=== PATIENT | female | born 1990 | race Caucasian/White ===

== ENCOUNTER 2020-11-24 18:14 | Emergency (ER) | payer BC, SELFPAY ==
[2020-11-24 18:31] VITALS: BP 116/72; PULSE 133; RESP 20; TEMP 35.9; O2SAT 100
--- NOTE | 2020-11-24 18:38 | ECG_ITS ---
Measurements Intervals [place] Rate: 120 P: 52 TX: 140 QRS: 48 QRSD: 83 T: 54 QT: 275 QTc: 389 Interpretive Statements SINUS TACHYCARDIA ABNORMAL ECG Electronically Signed On 11-24-2020 18:50:41 HAND BENDER by Sanchez Mirza D.O.
[2020-11-24 18:48] LABS: Basophils Absolute Auto 0.1 K/mm3 (0.0-0.1); Basophils Percent Auto 0.3 % (0.2-1.2); Eosinophils Absolute Auto 0.2 K/mm3 (0-0.3); Hematocrit 35.4 % (37.0-47.0); Hemoglobin 12.2 g/dL (12.0-15.0); Immature Granulocyte Absolute 0.19 K/mm3 (0.00-0.031); Immature Granulocyte Percent A 1.1 % (0-0.5); Lymphocytes Absolute Auto 2.22 K/mm3 (0.9-3.2); Lymphocytes Percent Auto 12.8 % (18.3-44.2); Mean Corpuscular HGB Conc 34.5 g/dl (32-36); Mean Corpuscular Hemoglobin 31.1 pg (26-34); Mean Corpuscular Volume 90.3 fl (80-100); Mean Platelet Volume 9.7 fl (7.4-10.4); Monocytes Absolute Auto 1.2 K/mm3 (0.1-0.6); Monocytes Percent Auto 7.1 % (2.6-8.5); Neutrophils Absolute Auto 13.5 K/mm3 (1.3-6.7); Neutrophils Percent Auto 77.7 % (45.5-73.1); Platelet Count Result 196 k/mm3 (150-375); Red Blood Count 3.92 M/mm3 (4.2-5.4); Red Cell Distribution Width 12.8 % (11.5-14.5); White Blood Count 17.4 K/mm3 (4.5-10.0)
[2020-11-24 18:59] LABS: Alanine Aminotransferase 20 U/L (4-35); Albumin Level 3.6 g/dL (3.5-5.1); Alkaline Phosphatase 73 U/L (38-126); Anion Gap 3 mmol/L (8-16); Aspartate Amino Transferase 23 U/L (14-36); Bilirubin,Total 0.5 mg/dL (0.2-1.3); Blood Urea Nitrogen 9 mg/dL (7-17); Calcium 9.3 mg/dL (8.4-10.2); Carbon Dioxide 27 mmol/L (22-30); Chloride 105 mmol/L (98-107); Estimated CRCL calculation 96 ml/min; Estimated Glomerular Filt Rate > 60; Glucose 109 mg/dL (65-105); Potassium 3.3 mmol/L (3.4-5.0); Sodium 135 mmol/L (137-145)
[2020-11-24 19:26] LABS: Add Urine Microscopic? YES; Appearance Urine Cloudy (Clear); Bacteria Urine 2+ /hpf; Bilirubin Urine Negative (Negative); Blood Urine Negative (Negative); Color Urine Yellow (Yellow); Glucose Urine UA Negative (Negative); Ketones Urine Negative (Negative); Leukocyte Esterase Ur Negative LEU/UL (Negative); Mucus Urine Rare /lpf; Nitrate Urine Negative (Negative); Protein Urine Negative (Negative); Specific Grav Ur 1.011 (1.001-1.035); Squamous Epithelial Cell Urine Few /hpf (Few); Urobilinogen Urine Negative mg/dL (<2.0)
[2020-11-24 19:33] VITALS: BP 119/83; PULSE 122; RESP 17; O2SAT 99
[2020-11-24] MEDS: SODIUM CHLORIDE 0.9% IV 1,000 ML 999 ML IV CONT (20:13)
--- NOTE | 2020-11-24 20:42 | ED.ARRPALP ---
HPI - Arrhythmia/Palpitations General Chief Complaint: Arrhythmia/Palpitations Stated Complaint: headache, palpations Time Seen by Provider: 11/24/20 19:32 History of Present Illness HPI narrative: Patient is a 30-year-old female who is 26 weeks who presents ER with a racing heartbeat. Reports has been ongoing for the last hour. She has had similar symptoms throughout the week. Is been associated with some mild shortness of breath. Is also associated with what she feels like is hyperactivity of her baby. No chest pain or chest pressure. Has not had the diagnosis of a formal arrhythmia in the past. has not been complicated up to this point. Reports has been eating and drinking okay. No blood in urine. No vaginal bleeding or leakage of fluid from the vagina. Related Data Allergies Allergy/AdvReac Type Severity Reaction Status Date / Time morphine Allergy Intermediate Rash Verified 11/04/18 19:53 Review of Systems Review of Systems: All systems reviewed & are unremarkable except as noted in HPI and below Constitutional: Constitutional: Denies chills, Denies fever(s) and Denies weakness Cardiovascular: Cardiovascular: Denies chest pain, Reports rapid heart rate and Denies radiating jaw, neck or arm pain Respiratory: Respiratory: Denies cough, Denies dyspnea and Denies wheezing Genitourinary: Genitourinary: Denies abnormal vaginal bleeding, Denies nocturia and Denies dysuria PMFSH Past Medical History Medical History (Updated 11/24/20 @ 21:09 by Tyler Payne MD) Healthy female adult Surgical History Surgical History (Updated 11/24/20 @ 20:43 by Tyler Payne MD) No history of previous surgery Exam Narrative: Exam Narrative: GENERAL: Well-appearing, well-nourished, and in no acute distress. HEAD: Normocephalic, atraumatic. CHEST: Clear to auscultation. No respiratory distress. HEART: Tachycardic and regular. Normal peripheral pulses. ABDOMEN: Soft, nontender, gravid. EXTREMITIES: Normal range of motion. No edema. SKIN: Warm, dry, no rash. NEURO: Alert and oriented x3. Course Course Emergency Course: Heart rate has gone down from 130 to 104 after a bag of fluid. Patient is feeling improved. Discussed case with Dr. Mack. Will place patient on Vital Signs Vital signs: Vital Signs Temperature 96.6 F L 11/24/20 18:31 Pulse Rate 133 H 11/24/20 18:31 Respiratory Rate 20 11/24/20 18:31 Blood Pressure 116/72 11/24/20 18:31 Pulse Oximetry 100 11/24/20 18:31 Temperature 96.6 F L 11/24/20 18:31 Pulse Rate 105 H 11/24/20 20:49 Respiratory Rate 19 11/24/20 20:49 Blood Pressure 102/63 11/24/20 20:49 Pulse Oximetry 99 11/24/20 20:49 MDM - Arrhythmia/Palpitations Lab Data Result diagrams: 11/24/20 18:41 11/24/20 18:41 Labs: Lab Results 11/24/20 11/24/20 11/24/20 Range/Units 18:41 18:41 19:07 WBC 17.4 H (4.5-10.0) K/mm3 RBC 3.92 L (4.2-5.4) M/mm3 Hgb 12.2 (12.0-15.0) g/dL Hct 35.4 L (37.0-47.0) % MCV 90.3 (80-100) fl MCH 31.1 (26-34) pg MCHC 34.5 (32-36) g/dl RDW 12.8 (11.5-14.5) % Plt Count 196 (150-375) k/mm3 MPV 9.7 (7.4-10.4) fl Immature Gran % (Auto) 1.1 H (0-0.5) % Neut % (Auto) 77.7 H (45.5-73.1) % Lymph % (Auto) 12.8 L (18.3-44.2) % [place] % (Auto) 7.1 (2.6-8.5) % Eos % (Auto) 1.0 (0-4.4) % Baso % (Auto) 0.3 (0.2-1.2) % Lymph # (Auto) 2.22 (0.9-3.2) K/mm3 [place] # (Auto) 1.2 H (0.1-0.6) K/mm3 Eos # (Auto) 0.2 (0-0.3) K/mm3 Baso # (Auto) 0.1 (0.0-0.1) K/mm3 Abs Immat Gran (auto) 0.19 H (0.00-0.031) K/mm3 Absolute Neuts (auto) 13.5 H (1.3-6.7) K/mm3 Absolute Nucleated RBC 0.0 (0.0-0.012) K/mm3 Nucleated RBC % 0.0 (0.0-0.2) % Sodium 135 L (137-145) mmol/L Potassium 3.3 L (3.4-5.0) mmol/L Chloride 105 (98-107) mmol/L Carbon Dioxide 27 (22-30) mmol/L Anion Gap 3 L (
[2020-11-24 20:49] VITALS: BP 102/63; PULSE 105; RESP 19; O2SAT 99
== END 2020-11-24 21:19 | disposition home or self-care (01) ==
PROVIDERS: Emergency Medicine; Emergency Provider Emergency Medicine; PCP Family Medicine
DX: O26.892 Other specified pregnancy related conditions, second trimester (principal); R00.2 Palpitations; O23.92 Unspecified genitourinary tract infection in pregnancy, second trimester; O99.282 Endocrine, nutritional and metabolic diseases complicating pregnancy, second trimester; E86.0 Dehydration; R00.0 Tachycardia, unspecified; Z3A.26 26 weeks gestation of pregnancy
CPT/HCPCS: 36415; 80053; 81001; 85025; 93005; 96360; 99283; J7030

== ENCOUNTER 2020-12-20 00:41 | Observation (INO) | payer BC, SELFPAY ==
[2020-12-20] VITALS (21 sets, daily range): BP systolic 106–123; BP diastolic 60–80; PULSE 87–120; TEMP 37.3
--- NOTE | 2020-12-20 01:59 | LDADM ---
This patient, Loretta Zaragoza, was admitted to OB Post 117 on 12/20/20 at 00:41. Plans for labor, pain management and were discussed with patient. Patient/family oriented to hospital policies and general routines including ID bracelet, bed and alarms, visiting hours, pain management, procedures, bathroom and other care routines, personal items, smoking policy, room service/diet and guest tray routines, infant security routines, and visiting hours. Patient/Family are encouraged to report perceived risks to care and to ask questions if they do not understand what they are told or what they should do. See OBIX for further documentation.
[2020-12-20] MEDS: NIFEdipine 30 MG TAB.ER.24 PO (02:08)
[2020-12-20] MEDS: TERBUTALINE SULFATE 1 MG/ML VIAL 0.25 MG SUB-Q (04:37)
[2020-12-20 04:51] LABS: Add Urine Microscopic? YES; Appearance Urine Cloudy (Clear); Bacteria Urine 3+ /hpf; Bilirubin Urine Negative (Negative); Blood Urine 2+ (Negative); Color Urine Yellow (Yellow); Glucose Urine UA Negative (Negative); Ketones Urine Negative (Negative); Leukocyte Esterase Ur Negative LEU/UL (Negative); Mucus Urine Rare /lpf; Nitrate Urine Negative (Negative); Protein Urine Negative (Negative); RBC Urine 51-75 /hpf (0-2); Squamous Epithelial Cell Urine Occasional /hpf (Few); Urobilinogen Urine Negative mg/dL (<2.0)
[2020-12-20] MEDS: LACTATED RINGERS 1,000 ML 999 ML IV CONT (06:24)
[2020-12-20] MEDS: NITROFURANTOIN MONOHYD MACROCR 100 MG CAP PO (06:25)
--- NOTE | 2020-12-20 08:00 | PC.NURSE ---
0745- Niranjan Lea on unit. Orders to discharge to home with a follow up in the office on Saturday. Prescription for Macrobid 100mg BID x7 days transmitted to [facility] in [place].
--- NOTE | 2021-01-16 10:53 | P.PNOB_ITS ---
OB - Triage/Final Diagnosis Visit Information Comments/Additional reasons for admission: I have assessed the risk for this patient, Loretta Zaragoza, and determined that she would benefit from observation care. Evaluation Laboratory results: Laboratory Tests 12/20/20 04:32 Urine Color Yellow Urine Appearance Cloudy H Urine pH 7.0 Ur Specific [place] 1.010 Urine Protein Negative Urine Glucose (UA) Negative Urine Ketones Negative Ur Blood (Man) 2+ H Urine Nitrate Negative Urine Bilirubin Negative Urine Urobilinogen Negative Leukocyte Esterase Rfl Negative Urine RBC 51-75 H Urine WBC 4-6 H Ur Squamous Epith Cells Occasional Urine Bacteria 3+ H Urine Mucus Rare Final Diagnosis (1) False labor: Code(s): O47.9 - False labor, unspecified Status: Acute
--- NOTE | 2021-01-16 11:27 | PM.OBTRLD ---
OB - Triage/Final Diagnosis Visit Information Comments/Additional reasons for admission: I have assessed the risk for this patient, Loretta Zaragoza, and determined that she would benefit from observation care. Evaluation Laboratory results: Laboratory Tests 12/20/20 04:32 Urine Color Yellow Urine Appearance Cloudy H Urine pH 7.0 Ur Specific [place] 1.010 Urine Protein Negative Urine Glucose (UA) Negative Urine Ketones Negative Ur Blood (Man) 2+ H Urine Nitrate Negative Urine Bilirubin Negative Urine Urobilinogen Negative Leukocyte Esterase Rfl Negative Urine RBC 51-75 H Urine WBC 4-6 H Ur Squamous Epith Cells Occasional Urine Bacteria 3+ H Urine Mucus Rare Final Diagnosis (1) False labor: Code(s): O47.9 - False labor, unspecified Status: Acute
== END 2020-12-20 08:24 | disposition home or self-care (01) ==
PROVIDERS: Advanced Practice Midwife; Admitting Provider Obstetrics & Gynecology; PCP Family Medicine; Visit Provider Obstetrics & Gynecology
DX: O47.03 False labor before 37 completed weeks of gestation, third trimester (principal); Z3A.30 30 weeks gestation of pregnancy
CPT/HCPCS: 81001; 96360; 96372; A9270; G0378; G0379; J3105; J7120

== ENCOUNTER 2020-12-29 13:53 | Observation (INO) | payer BC, SELFPAY ==
[2020-12-29] VITALS (30 sets, daily range): BP systolic 120–123; BP diastolic 68–69; PULSE 96–140; TEMP 36.6; O2SAT 95–100
--- NOTE | ~2020-12-29 | US_ITS ---
EXAMINATION: US OB limited EXAM DATE: 12/29/2020 15:46 INDICATION: PTL ( labor?)- POLA PTL, POLA . 3rd trimester. TECHNIQUE: Pelvic obstetrical transabdominal sonogram was performed by a technologist. There are mu ltiple grayscale and Doppler images available for interpretation. There are no earlier studies of th is gestation for comparison. FINDINGS: There is a single fetus identified in vertex presentation with a heart rate of 116 beats pe r minute. The placenta is located in the fundal position. There is no sonographic evidence of retrop lacental hemorrhage identified. The amniotic fluid index is 12.8 centimeters, which is normal. IMPRESSION: 1. Single fetus in vertex presentation with heart rate 116 beats per minute. 2. Normal POLA 12.8 cm. Reviewed, dictated and finalized at location A. TER SERVER
[2020-12-29] MEDS: LACTATED RINGERS 1,000 ML 100 ML IV CONT (15:50)
[2020-12-29] MEDS: NIFEdipine 30 MG TAB.ER.24 PO (15:50)
--- NOTE | 2020-12-29 16:04 | OBADM ---
This patient, Loretta Zaragoza, admitted to the OB room OB Post 113 for observation. Patient/family oriented to hospital policies and general routines including ID bracelet, bed and alarms, visiting hours, pain management, procedures, bathroom and other care routines, personal items, smoking policy, room service/diet, and visiting hours. Patient/Family are encouraged to report perceived risks to care and to ask questions if they do not understand what they are told or what they should do.
[2020-12-29 16:17] LABS: Fetal Fibronectin Negative
[2020-12-29 16:32] LABS: Add Urine Microscopic? NO; Appearance Urine Clear (Clear); Bilirubin Urine Negative (Negative); Blood Urine Negative (Negative); Color Urine Straw (Yellow); Glucose Urine UA Negative (Negative); Ketones Urine Negative (Negative); Leukocyte Esterase Ur Negative LEU/UL (Negative); Nitrate Urine Negative (Negative); Protein Urine Negative (Negative); Specific Grav Ur 1.008 (1.001-1.035); Urobilinogen Urine Negative mg/dL (<2.0)
[2020-12-29] MEDS: TERBUTALINE SULFATE 1 MG/ML VIAL 0.25 MG SUB-Q (17:28)
--- NOTE | 2021-01-23 08:20 | PM.OBTRLD ---
OB - Triage/Final Diagnosis Visit Information Comments/Additional reasons for admission: I have assessed the risk for this patient, Loretta Zaragoza, and determined that she would benefit from observation care. Evaluation Laboratory results: Laboratory Tests 12/29/20 12/29/20 15:20 15:49 Urine Color Straw Urine Appearance Clear Urine pH 7.0 Ur Specific [place] 1.008 Urine Protein Negative Urine Glucose (UA) Negative Urine Ketones Negative Ur Blood (Man) Negative Urine Nitrate Negative Urine Bilirubin Negative Urine Urobilinogen Negative Leukocyte Esterase Rfl Negative Fibronectin Negative Final Diagnosis (1) False labor: Code(s): O47.9 - False labor, unspecified Status: Acute
== END 2020-12-29 19:45 | disposition home or self-care (01) ==
PROVIDERS: Advanced Practice Midwife; Admitting Provider Obstetrics & Gynecology; PCP Family Medicine; Visit Provider Obstetrics & Gynecology
DX: O47.9 False labor, unspecified (principal); Z3A.00 Weeks of gestation of pregnancy not specified
CPT/HCPCS: 76815; 81003; 82731; 84112; 96372; A9270; G0378; G0379; J3105; J7120

== ENCOUNTER 2021-01-05 20:20 | Observation (INO) | payer BC, SELFPAY ==
[2021-01-05 20:38] VITALS: BP 127/83; PULSE 103
[2021-01-05 21:00] VITALS: BP 114/75; PULSE 108
[2021-01-05 21:28] LABS: Add Urine Microscopic? YES; Amorphous Sediment Urine Few; Appearance Urine Cloudy (Clear); Bacteria Urine Trace /hpf; Bilirubin Urine Negative (Negative); Blood Urine Negative (Negative); Color Urine Yellow (Yellow); Glucose Urine UA Negative (Negative); Ketones Urine Negative (Negative); Leukocyte Esterase Ur Negative LEU/UL (Negative); Mucus Urine Rare /lpf; Nitrate Urine Negative (Negative); Protein Urine Negative (Negative); RBC Urine 0-2 /hpf (0-2); Squamous Epithelial Cell Urine Rare /hpf (Few); Urobilinogen Urine Negative mg/dL (<2.0); WBC Urine 0-3 /hpf
[2021-01-05] MEDS: TERBUTALINE SULFATE 1 MG/ML VIAL 0.25 MG SUB-Q (21:42)
--- NOTE | 2021-02-06 09:58 | P.PNOB_ITS ---
OB - Triage/Final Diagnosis Visit Information Comments/Additional reasons for admission: I have assessed the risk for this patient, Loretta Zaragoza, and determined that she would benefit from observation care. Evaluation Laboratory results: Laboratory Tests 01/05/21 21:12 Urine Color Yellow Urine Appearance Cloudy H Urine pH 7.0 Ur Specific [place] 1.010 Urine Protein Negative Urine Glucose (UA) Negative Urine Ketones Negative Ur Blood (Man) Negative Urine Nitrate Negative Urine Bilirubin Negative Urine Urobilinogen Negative Leukocyte Esterase Rfl Negative Urine RBC 0-2 Urine WBC 0-3 Ur Squamous Epith Cells Rare Amorphous Sediment Few H Urine Bacteria Trace Urine Mucus Rare Final Diagnosis (1) False labor: Code(s): O47.9 - False labor, unspecified Status: Acute
== END 2021-01-05 23:00 | disposition home or self-care (01) ==
PROVIDERS: Admitting Provider Obstetrics & Gynecology; Visit Provider Obstetrics & Gynecology
DX: O47.03 False labor before 37 completed weeks of gestation, third trimester (principal); Z3A.32 32 weeks gestation of pregnancy
CPT/HCPCS: 81001; 96372; G0378; G0379; J3105

== ENCOUNTER 2021-01-09 17:56 | Observation (INO) | payer BC, SELFPAY ==
[2021-01-09 18:19] VITALS: BP 129/75; PULSE 114
[2021-01-09 18:30] VITALS: RESP 12; TEMP 37
[2021-01-09 18:38] VITALS: BMI 26.9
[2021-01-09] MEDS: TERBUTALINE SULFATE 1 MG/ML VIAL 0.25 MG SUB-Q (19:08)
[2021-01-09] MEDS: NIFEdipine 10 MG CAPSULE PO (22:29)
--- NOTE | 2021-01-10 04:56 | PC.NURSE ---
2109 patient given 2nd dose of terb
--- NOTE | 2021-01-23 08:32 | PM.OBTRLD ---
OB - Triage/Final Diagnosis Visit Information Comments/Additional reasons for admission: I have assessed the risk for this patient, Loretta Zaragoza, and determined that she would benefit from observation care. Final Diagnosis (1) False labor: Code(s): O47.9 - False labor, unspecified Status: Acute
== END 2021-01-09 23:34 | disposition home or self-care (01) ==
PROVIDERS: Admitting Provider Obstetrics & Gynecology; PCP Student in an Organized Health Care Education/Training Program; Visit Provider Obstetrics & Gynecology
DX: O47.03 False labor before 37 completed weeks of gestation, third trimester (principal); Z3A.32 32 weeks gestation of pregnancy
CPT/HCPCS: 96372; A9270; G0378; G0379; J3105

== ENCOUNTER 2021-01-29 10:08 | Observation (INO) | payer BC, SELFPAY ==
--- NOTE | ~2021-01-29 | US_ITS ---
US OB limited DATE: 01/29/2021 12:04 INDICATION: Leaking fluid TECHNIQUE: Real-time imaging and Doppler analysis COMPARISON: 12/2020 Limited obstetrical ultrasound examination FINDINGS: Live [place] intrauterine gestation, fetus in longitudinal lie, vertex presentation. Feta l heart rate of 138 bpm. Fundal placenta. Amniotic fluid index measures 13.6 cm, compared to 12.8 cm on 12/2020. (5th percentile POLA: 7.9 cm. 95th percentile POLA: 24.9 cm.) IMPRESSION: Normal POLA measurement of 13.6 cm Reviewed, dictated and finalized at [facility]. Reviewed, dictated and finalized at location A.
--- NOTE | 2021-01-29 10:08 | OBADM ---
This patient, Loretta Zaragoza, admitted to the OB room Labor/Delivery/Recovery 104 for observation. Patient/family oriented to hospital policies and general routines including ID bracelet, bed and alarms, visiting hours, pain management, procedures, bathroom and other care routines, personal items, smoking policy, room service/diet, and visiting hours. Patient/Family are encouraged to report perceived risks to care and to ask questions if they do not understand what they are told or what they should do.
[2021-01-29] MEDS: NIFEdipine 30 MG TAB.ER.24 PO (12:57)
[2021-01-29 13:25] VITALS: BMI 28.7
== END 2021-01-29 15:15 | disposition home or self-care (01) ==
PROVIDERS: Admitting Provider Obstetrics & Gynecology; PCP Student in an Organized Health Care Education/Training Program; Visit Provider Obstetrics & Gynecology
DX: O47.9 False labor, unspecified (principal); Z3A.00 Weeks of gestation of pregnancy not specified
CPT/HCPCS: 76815; 84112; A9270; G0378; G0379

== ENCOUNTER 2021-02-10 18:11 | Observation (INO) | payer BC, SELFPAY ==
[2021-02-10 18:30] VITALS: BMI 28.8
--- NOTE | 2021-02-10 21:59 | OBADM ---
This patient, Loretta Zaragoza, admitted to the OB room Labor/Delivery/Recovery 108 for observation. Patient/family oriented to hospital policies and general routines including ID bracelet, bed and alarms, visiting hours, pain management, procedures, bathroom and other care routines, personal items, smoking policy, room service/diet, and visiting hours. Patient/Family are encouraged to report perceived risks to care and to ask questions if they do not understand what they are told or what they should do.
--- NOTE | 2021-02-15 07:38 | P.PNOB_ITS ---
OB - Triage/Final Diagnosis Visit Information Date of evaluation: 02/12/21 Reason for evaluation: threatened labor Comments/Additional reasons for admission: I have assessed the risk for this patient, Loretta Zaragoza, and determined that she would benefit from obse rvation care.
== END 2021-02-10 21:46 | disposition home or self-care (01) ==
PROVIDERS: Admitting Provider Obstetrics & Gynecology; Visit Provider Obstetrics & Gynecology
DX: O47.9 False labor, unspecified (principal); Z3A.00 Weeks of gestation of pregnancy not specified
CPT/HCPCS: G0378; G0379

== ENCOUNTER 2021-02-15 14:53 | Inpatient (IN) | payer BC, SELFPAY ==
[2021-02-15] VITALS (36 sets, daily range): BP systolic 83–156; BP diastolic 45–116; PULSE 68–104; TEMP 36.4–36.7; O2SAT 98–100; BMI 28.8
[2021-02-15 15:17] LABS: Basophils Percent Auto 0.3 % (0.2-1.2); Eosinophils Absolute Auto 0.1 K/mm3 (0-0.3); Eosinophils Percent Auto 0.7 % (0-4.4); Hematocrit 35.2 % (37.0-47.0); Hemoglobin 11.9 g/dL (12.0-15.0); Immature Granulocyte Absolute 0.09 K/mm3 (0.00-0.031); Immature Granulocyte Percent A 0.8 % (0-0.5); Lymphocytes Absolute Auto 1.75 K/mm3 (0.9-3.2); Lymphocytes Percent Auto 16.4 % (18.3-44.2); Mean Corpuscular HGB Conc 33.8 g/dl (32-36); Mean Corpuscular Hemoglobin 30.3 pg (26-34); Mean Corpuscular Volume 89.6 fl (80-100); Mean Platelet Volume 11.3 fl (7.4-10.4); Monocytes Absolute Auto 1.1 K/mm3 (0.1-0.6); Neutrophils Absolute Auto 7.6 K/mm3 (1.3-6.7); Neutrophils Percent Auto 71.8 % (45.5-73.1); Platelet Count Result 186 k/mm3 (150-375); Red Blood Count 3.93 M/mm3 (4.2-5.4); Red Cell Distribution Width 14.1 % (11.5-14.5); White Blood Count 10.6 K/mm3 (4.5-10.0)
[2021-02-15 15:22] LABS: Add Urine Microscopic? YES; Appearance Urine Cloudy (Clear); Bacteria Urine Trace /hpf; Bilirubin Urine Negative (Negative); Blood Urine Negative (Negative); Color Urine Straw (Yellow); Glucose Urine UA Negative (Negative); Ketones Urine Negative (Negative); Leukocyte Esterase Ur Negative LEU/UL (NEGATIVE); Mucus Urine Rare /lpf; Nitrate Urine Negative (Negative); Protein Urine Negative (Negative); RBC Urine 0-2 /hpf (0-2); Specific Grav Ur 1.008 (1.001-1.035); Squamous Epithelial Cell Urine Rare /hpf (Few); Urobilinogen Urine Negative mg/dL (<2.0); WBC Urine 0-3 /hpf (0-3)
[2021-02-15 15:26] LABS: Alanine Aminotransferase 11 U/L (4-35); Albumin Level 3.9 g/dL (3.5-5.1); Alkaline Phosphatase 211 U/L (38-126); Anion Gap 6 mmol/L (8-16); Aspartate Amino Transferase 27 U/L (14-36); Bilirubin,Total 0.7 mg/dL (0.2-1.3); Blood Urea Nitrogen 12 mg/dL (7-17); Calcium 9.8 mg/dL (8.4-10.2); Carbon Dioxide 25 mmol/L (22-30); Chloride 105 mmol/L (98-107); Estimated Glomerular Filt Rate 58; Glucose 92 mg/dL (65-105); Potassium 4.4 mmol/L (3.4-5.0); Sodium 136 mmol/L (137-145); Uric Acid 6.2 mg/dL (2.5-7.5)
[2021-02-15 15:29] LABS: Creatinine Urine 38.5 mg/dL; Total Protein Urine Random 13 mg/dL; Ur Ttl Prot Creatinine Ratio 0.34 mg/mg (0-0.20)
--- NOTE | 2021-02-15 16:29 | LDADM ---
This patient, Loretta Zaragoza, was admitted to Labor/Delivery/Recovery 109 on 02/15/21 at 14:53. Plans for labor, pain management and were discussed with patient. Patient/family oriented to hospital policies and general routines including ID bracelet, bed and alarms, visiting hours, pain management, procedures, bathroom and other care routines, personal items, smoking policy, room service/diet and guest tray routines, security routines, and visiting hours. Patient/Family are encouraged to report perceived risks to care and to ask questions if they do not understand what they are told or what they should do. See OBIX for further documentation.
[2021-02-15] MEDS: DINOPROSTONE 10 MG VAG INSERT VAGINAL (16:56)
--- NOTE | 2021-02-15 17:24 | WPDANESEPP ---
Anes - Eval Pre Procedure Procedure: labor epidural Date/Time: 02/15/21 17:24 Surgeon: fany Pre Op Diagnosis: [facility] Patient Data Age: 30 Gender: F Height: 1.63 m Weight: 76 kg Last Vital Signs Temp 36.7 C 02/15/21 16:30 Pulse 80 02/15/21 17:15 BP 123/74 02/15/21 17:15 Allergies Allergy/AdvReac Type Severity Reaction Status Date / Time morphine Allergy Intermediate Rash Verified 11/04/18 19:53 Home Medications Medication Instructions Recorded Confirmed Type famotidine [Pepcid] 20 mg PO DAILY PRN 01/05/21 02/15/21 History prenat.vits,negro,[id number] 1 tablet PO DAILY 01/05/21 02/15/21 History valacyclovir [Valtrex] 500 mg PO Q12H 01/30/21 02/15/21 History Laboratory Tests 02/15/21 02/15/21 02/15/21 15:04 15:04 15:04 WBC 10.6 K/mm3 H K/mm3 (4.5-10.0) RBC 3.93 M/mm3 L M/mm3 (4.2-5.4) Hgb 11.9 g/dL L g/dL (12.0-15.0) Hct 35.2 % L % (37.0-47.0) MCV 89.6 fl fl (80-100) MCH 30.3 pg pg (26-34) MCHC 33.8 g/dl g/dl (32-36) RDW 14.1 % % (11.5-14.5) Plt Count 186 k/mm3 k/mm3 (150-375) MPV 11.3 fl H fl (7.4-10.4) Immature Gran % (Auto) 0.8 % H % (0-0.5) Neut % (Auto) 71.8 % % (45.5-73.1) Lymph % (Auto) 16.4 % L % (18.3-44.2) [place] % (Auto) 10.0 % H % (2.6-8.5) Eos % (Auto) 0.7 % % (0-4.4) Baso % (Auto) 0.3 % % (0.2-1.2) Lymph # (Auto) 1.75 K/mm3 K/mm3 (0.9-3.2) [place] # (Auto) 1.1 K/mm3 H K/mm3 (0.1-0.6) Eos # (Auto) 0.1 K/mm3 K/mm3 (0-0.3) Baso # (Auto) 0.0 K/mm3 K/mm3 (0.0-0.1) Abs Immat Gran (auto) 0.09 K/mm3 H K/mm3 (0.00-0.031) Absolute Neuts (auto) 7.6 K/mm3 H K/mm3 (1.3-6.7) Absolute Nucleated RBC 0.0 K/mm3 K/mm3 (0.0-0.012) Nucleated RBC % 0.0 % % (0.0-0.2) Sodium Potassium Chloride Carbon Dioxide Anion Gap BUN Creatinine Estim Creat Clear Calc Estimated GFR Glucose Uric Acid Calcium Total Bilirubin AST ALT Alkaline Phosphatase Total Protein Albumin Urine Color Straw (Yellow) Urine Appearance Cloudy H (Clear) Urine pH 7.0 (5.0-9.0) Ur Specific [place] 1.008 (1.001-1.035) Urine Protein Negative mg/dL mg/dL (Negative) Urine Glucose (UA) Negative mg/dL mg/dL (Negative) Urine Ketones Negative mg/dL mg/dL (Negative) Ur Blood (Man) Negative (Negative) Urine Nitrate Negative (Negative) Urine Bilirubin Negative (Negative) Urine Urobilinogen Negative mg/dL mg/dL (<2.0) Ur Leukocyte Esterase Negative RUFINA/UL RUFINA/UL (NEGATIVE) Urine RBC 0-2 /hpf /hpf (0-2) Urine WBC 0-3 /hpf /hpf (0-3) Ur Squamous Epith Cells Rare /hpf /hpf (Few) Urine Bacteria Trace /hpf /hpf Urine Mucus Rare /lpf /lpf U Random Total Protein 13 mg/dL mg/dL Urine Creatinine 38.5 mg/dL mg/dL Protein/Creat Ratio 2 0.34 mg/mg H mg/mg (0-0.20) RPR Blood Type Antibody Screen 02/15/21 02/15/21 02/15/21 15:04 16:20 16:20 WBC RBC Hgb Hct MCV MCH MCHC RDW Plt Count MPV Immature Gran % (Auto) Neut % (Auto) Lymph % (Auto) [place] % (Auto) Eos % (Auto) Baso % (Auto) Lymph # (Auto) [place] # (Auto) Eos # (Auto) Baso # (Auto) Abs Immat
--- NOTE | 2021-02-15 18:02 | WPDOBADMIT ---
Obstetrics - Admit Note Admission Note: record reviewed. No pertinent additions to the history and/or any subsequent changes in the physical findings that are not consistent with the expected course of the were found. Pt admitted for MIL due to GHTN. Denies headache, visual changes, and epigastric pain, cytotec induction Additions to the history and/or subsequent changes in the physical findings follow. None.
[2021-02-15] MEDS: FAMOTIDINE 20 MG/2 ML VIAL IV PUSH (20:21)
--- NOTE | 2021-02-15 22:11 | PM.OBPNLAB ---
Pain Control Date/time seen: 02/15/21 22:11 Pain control: tolerating well Pelvic Exam Dilation (cm): 1 Effacement (%): 80 station: -1 Amniotic membrane status: Ruptured Comments: AROM Contractions Monitor mode: External Contraction frequency: 2 Contraction duration: 60 Contraction pattern: Regular Status status: Category l Assessment and Plan Comments: cervadil removed and AROM, plan to monitor bp stable
[2021-02-16] VITALS (47 sets, daily range): BP systolic 91–139; BP diastolic 58–92; PULSE 62–143; RESP 14–18; TEMP 36.5–37.4; O2SAT 97–100
[2021-02-16] MEDS: OXYTOCIN 30 UNITS/NS 500 ML 30 UNITS/500 ML BAG IV CONT ×2 (00:57→06:20)
--- NOTE | 2021-02-16 06:01 | PM.OBPRVD ---
OB - Delivery Note Procedure Delivery date: 02/16/21 Procedure: vaginal delivery events: Induced HTN Intrapartal events: None Induction method: AROM, per misoprostol protocol and per pitocin protocol Delivery monitor: external FHT Route of delivery: Laceration Description: Perineal - 2nd Degree Delivery repair: vicryl Specimen: Yes Quantitative Blood Loss (ml): 303 Anesthesia type: Epidural Disposition: other () [place] Baby Date of : 02/16/21 Time of : 05:40 Weeks of gestation at delivery: 38 Infant gender: Male Weight (pounds): 8 Weight (ounces): 10 presentation: vertex position: Left Occiput Anterior Placenta delivery description: Spontaneous cord vessel description: 3 Vessels, Nuchal Cord, Clamped/Cut and Delayed Cord Clamping score one minute: 9 score five minutes: 9 Narrative: mother and baby skin to skin in stable condition
--- NOTE | 2021-02-16 07:30 | PC.NURSE ---
Consulted with patient, mother reports infant has been latching with sleepiness and on and off during feedings. Mother reports last child that is 16 years old. Discussed and the 37 week infant, establishing may have its own unique set of circumstances due to their immaturity. infants may be less alert, have less stamina and may have issues with latch, suck and swallow. With the possible inability to have a vigorous suck swallow, infants may not be adequately stimulating mother and/or able to have adequate milk transfer. Pumping should be considered for additional stimulation and to offer EBM as part of supplement if needed if is not effectively nursing. Reviewed infant feeding cues, frequencies, duration of feedings, feeding elimination flow sheet, and signs of adequate intake. Demonstrated stimulation techniques to wake for feeding. Assisted with to breast. Reviewed positioning/alignment in cross cradle, holding breast in U hold and guided asymmetrical latch on. Infant was able to latch correctly within a few attempts. nursed eagerly, with steady draws and occasional swallowing noted. . Mother reported tenderness at times, had slipped to shallow latch. Demonstrated how to adjust latch more deeply while feeding. Mother quickly reports she can feel is latched more deeply and has minimal tenderness. Suggested to stimulate while feeding to keep awake and nursing effectively for increased stimulation, increased intake and assisting with maintaining deep latch.. Instructed mother to call out for RN assistance if she is unable to latch infant for feeding or she has discomfort with nursing Reviewed signs of a correct latch, effective nursing and suck swallow ratio. Infant was able to maintain latch without discomfort to mother. Nipple care reviewed.
[2021-02-16] MEDS: IBUPROFEN 600 MG TABLET PO ×2 (07:58→16:21)
[2021-02-16] MEDS: BENZOCAINE 20% AER SPR (*SP) 56 GM CAN 1 SPRAY TOPICAL (07:59)
[2021-02-16] MEDS: WITCH HAZEL 40 PADS 1 PAD TOPICAL (08:00)
--- NOTE | 2021-02-16 08:37 | OBPPTRN ---
Patient transferred to post room #282 via wheelchair. Support person present. Oriented to unit, room, information board, rooming in, admission packet and security measures. Patient verbalizes understanding. FOB and baby in the room with patient
--- NOTE | 2021-02-16 09:30 | PC.NURSE ---
Consult with pt., mother reports she was given a nipple shield for first feeding due to inverted nipples. Mother sates eagerly latched and nurses using shield. Reviewed instructions on application and cleaning of shield. Discussed nipple shield precautions and possible complications. Patient able to return demonstration on proper application of shield. Discussed the need to initiate pumping if continues to nurse with the shield. Patient verbalizes understanding. Reviewed weaning techniques of nipple shield to attempt later. Discussed inverted nipples and how they may impact latch and tenderness with feeding. Nipple care reviewed. Reviewed infant feeding cues, frequencies, duration of feedings, feeding elimination flow sheet, and signs of adequate intake. Demonstrated stimulation techniques to wake for feeding. Assisted with to breast using nipple shield. Reviewed positioning/alignment in cross cradle, holding breast in U hold and guided asymmetrical latch on. Infant was able to latch correctly. Infant nursed eagerly, with steady draws and frequent swallowing noted. Reviewed signs of a correct latch, effective nursing and suck swallow ratio. was able to maintain latch without discomfort to mother. Nipple care reviewed. Instructed mother to call out for RN assistance if she is unable to latch for feeding or she has discomfort with nursing. Instructed feeding should be initiated three hours from start of last feeding or if feeding cues are noted before. Mother voiced understanding of information shared.
--- NOTE | 2021-02-16 12:15 | PC.NURSE ---
Mother called out for assist with feeding. Mother had nipple shield in place and independently attempting latch in football. Reviewed positioning/alignment in football, holding breast in C hold and guided asymmetrical latch on. Infant was able to latch correctly. nursed eagerly, with steady draws and frequent swallowing noted. Reviewed signs of a correct latch, effective nursing and suck swallow ratio. was able to maintain latch without discomfort to mother. Nipple care reviewed. Mother reported tenderness at times, had slipped to shallow latch. Demonstrated how to adjust latch more deeply while feeding. Mother quickly reports she can feel infant is latched more deeply and has minimal tenderness. Suggested to stimulate while feeding to keep awake and nursing effectively for increased stimulation, increased intake and to assist with maintaining deep latch. . Instructed mother to call out for RN assistance if she is unable to latch for feeding or she has discomfort with nursing
--- NOTE | 2021-02-16 12:40 | PC.NURSE ---
Breast pump provided due to nipple shield use. Instructions given on breast pump care and usage, pumping schedule, nipple care, and collection and storage of breast milk. Encouraged [id number], breast massage and manual expression to stimulate supply. Assessed patient for correct flange size, placement and draw. Patient verbalizes and demonstrates understanding of instructions.
[2021-02-16 13:04] LABS: Rapid Plasma Reagin Non-Reactive (NonReactive)
[2021-02-17 05:35] VITALS: BP 123/83; PULSE 98; RESP 15; TEMP 36.7
--- NOTE | 2021-02-17 05:51 | P.PNOB_ITS ---
OB - PN: Subj Subjective Date/time seen: 02/17/21 05:51 Patient comments: no complaints baby status: doing well [place] feeding status: exclusively breast feeding OB - PN: Obj Data Labs CBC & Chem 7: 02/15/21 15:04 02/15/21 15:04 Labs: Laboratory Results - last 24 hr 02/15/21 16:20 RPR Non-reactive OB - PN A/P Plan day: 2 Plan: routine care and discharge home Time Spent With Patient Time: Total time spent is greater than 50% in coordination of care (as documented) at patient's floor/unit and/or counseling patient: Review of Systems Review of Systems: All systems reviewed & are unremarkable except as noted in HPI and below Exam Const: General: cooperative Orientation/consciousness: patient oriented x3 Psych: Affect: normal affect Attitude: cooperative Thought process: Normal thought process present Thought content: Yes Normal thought content present Judgement: Good judgement present (Psych)
--- NOTE | 2021-02-17 05:53 | PM.OBDSVD ---
DS: Admitting Diagnosis Admitting Diagnosis Admitting Diagnosis: YOSVANY NEWSOME OB - DS: Summary OB Procedures : None OB Procedures Intrapartum: Spontaneous Vag Delivery OB Procedures: : None Time Spent with Patient Time attestation: Total time spent providing and/or coordinating discharge services: DS: Data Data Completed and Pending Pending studies at discharge: Pending at discharge 02/16/21 05:49 Surgical [PTH] Routine Labs on day of discharge: Labs from last 24 hours 02/15/21 16:20 RPR Non-reactive Discharge Plan Discharge Attending physician on discharge: Karen Mack Discharging Clinician: Lindsay Herrera Patient Disposition: Home, Self-Care Activity: pelvic rest Diet: regular Patient Instructions: Antibiotic Form Stand Alone Forms: General Discharge Information Follow-up/Referrals: Lindsay Herrera CNM [Certified Nurse Logistics Support] - 1 Week Discharge Medications: Continued valacyclovir [Valtrex] 500 mg Tablet 500 mg PO Q12H RF: 0 prenat.vits,negro,qch-cful-cizqq Tablet 1 tablet PO DAILY RF: 0 Discontinued famotidine [Pepcid] 20 mg Tablet 20 mg PO DAILY PRN (Reason: Heartburn) RF: 0 Date of admission: 02/15/21 14:53 Primary Care Provider: PHYSICIAN,CENTER SAL[employer] SERVICE ASSOCIATE Admitting Provider: Karen Mack Attending physician on admission: Karen Mack Condition: Stable
--- NOTE | 2021-02-17 05:53 | PM.OBTRLD ---
OB - Triage/Final Diagnosis Visit Information Date of evaluation: 02/14/21 Reason for evaluation: other (HTN) Comments/Additional reasons for admission: I have assessed the risk for this patient, Loretta Zaragoza, and determined that she would benefit from observation care. Evaluation Laboratory results: Laboratory Tests 02/15/21 02/15/21 02/15/21 15:04 15:04 15:04 WBC 10.6 H RBC 3.93 L Hgb 11.9 L Hct 35.2 L MCV 89.6 MCH 30.3 MCHC 33.8 RDW 14.1 Plt Count 186 MPV 11.3 H Immature Gran % (Auto) 0.8 H Neut % (Auto) 71.8 Lymph % (Auto) 16.4 L [place] % (Auto) 10.0 H Eos % (Auto) 0.7 Baso % (Auto) 0.3 Lymph # (Auto) 1.75 [place] # (Auto) 1.1 H Eos # (Auto) 0.1 Baso # (Auto) 0.0 Abs Immat Gran (auto) 0.09 H Absolute Neuts (auto) 7.6 H Absolute Nucleated RBC 0.0 Nucleated RBC % 0.0 Sodium Potassium Chloride Carbon Dioxide Anion Gap BUN Creatinine Estim Creat Clear Calc Estimated GFR Glucose Uric Acid Calcium Total Bilirubin AST ALT Alkaline Phosphatase Total Protein Albumin Urine Color Straw Urine Appearance Cloudy H Urine pH 7.0 Ur Specific [place] 1.008 Urine Protein Negative Urine Glucose (UA) Negative Urine Ketones Negative Ur Blood (Man) Negative Urine Nitrate Negative Urine Bilirubin Negative Urine Urobilinogen Negative Ur Leukocyte Esterase Negative Urine RBC 0-2 Urine WBC 0-3 Ur Squamous Epith Cells Rare Urine Bacteria Trace Urine Mucus Rare U Random Total Protein 13 Urine Creatinine 38.5 Protein/Creat Ratio 2 0.34 H RPR Blood Type Antibody Screen 02/15/21 02/15/21 02/15/21 15:04 16:20 16:20 WBC RBC Hgb Hct MCV MCH MCHC RDW Plt Count MPV Immature Gran % (Auto) Neut % (Auto) Lymph % (Auto) [place] % (Auto) Eos % (Auto) Baso % (Auto) Lymph # (Auto) [place] # (Auto) Eos # (Auto) Baso # (Auto) Abs Immat Gran (auto) Absolute Neuts (auto) Absolute Nucleated RBC Nucleated RBC % Sodium 136 L Potassium 4.4 Chloride 105 Carbon Dioxide 25 Anion Gap 6 L BUN 12 Creatinine 1.10 H Estim Creat Clear Calc Not Reportable Estimated GFR 58 L Glucose 92 Uric Acid 6.2 Calcium 9.8 Total Bilirubin 0.7 AST 27 ALT 11 Alkaline Phosphatase 211 H Total Protein 7.0 Albumin 3.9 Urine Color Urine Appearance Urine pH Ur Specific [place] Urine Protein Urine Glucose (UA) Urine Ketones Ur Blood (Man) Urine Nitrate Urine Bilirubin Urine Urobilinogen Ur Leukocyte Esterase Urine RBC Urine WBC Ur Squamous Epith Cells Urine Bacteria Urine Mucus U Random Total Protein Urine Creatinine Protein/Creat Ratio 2 RPR Non-reactive Blood Type A Positive Antibody Screen Negative Vital signs: Vital Signs - 24 hr 02/16/21 06:00 02/16/21 06:15 02/16/21 06:30 Temperature 37.2 C Pulse Rate 116 H 87 83 Respiratory Rate Blood Pressure 112/74 124/83 128/87 Pulse Oximetry 02/16/21 06:45 02/16/21 07:00 02/16/21 07:15 Temperature Pulse Rate 81 87 77 Respiratory Rate Blood Pressure 130/92 H 131/83 134/86 Pulse Oximetry 02/16/21 07:26 02/16/21 07:30 02/16/21 08:40 Temperature 37.4 C Pulse Rate 89 78 83 Respiratory Rate 18 Blood Pressure 135/87 135/89 131/88 Pulse Oximetry 100 02/16/21 11:45 02/16/21 16:00 02/16/21 16:15 Temperature 36.7 C 36.5 C Pulse Rate 75 89 89 Respiratory Rate 18 16 16 Blood Pressure 129/85 131/88 Pulse Oximetry 97 02/16/21 20:10 02/16/21 22:00 Temperature 36.8 C 36.7 C Pulse Rate 90 91 Respiratory Rate 14 16 Blood Pressure 123/88 128/80 Pulse Oximetry
[2021-02-17 05:59] LABS: Hematocrit 27.8 % (37.0-47.0); Hemoglobin 9.4 g/dL (12.0-15.0)
[2021-02-17] MEDS: IBUPROFEN 600 MG TABLET PO (07:11)
[2021-02-17] MEDS: MULTIVIT/MIN/PREN/FOL AC/IRON TABLET 1 TAB PO (07:11)
[2021-02-17] MEDS: DOCUSATE SODIUM 100 MG CAPSULE PO (07:11)
[2021-02-17] MEDS: POLYSACCHARIDE IRON COMPLEX 150 MG CAPSULE PO (07:11)
[2021-02-17 07:20] VITALS: BP 130/85; PULSE 99; RESP 18; TEMP 36.7; O2SAT 98
--- NOTE | 2021-02-17 13:16 | PC.NURSE ---
1050 Mother reports sore nipples with feeding. Right is excoriated and red. Reviewed nipple care of lanolin and warm moist heat several times per day. Mother states she has attempted several times without using nipple shield. Advised to use the shield if she has less tenderness and is able to maintain deep latch. She can work with weaning from the shield once nipple has healed and milk is in. ICP has suggested mother supplement 15mls after breastfeedings, mother states infant spit up first feeding and has not supplemented since. Mother was assisted with pumping due to nipple shield use, mother reports she has pumped a few times. Reviewed reasoning for pumping with shield use. Mother is able to latch infant independently using the nipple shield. Infant eagerly latches nursing with long rhythmic draws and occasional swallowing noted. Infant tends to slip to shallow latch while feeding. Demonstrated how to adjust latch more deeply while feeding. Mother able to work infant deeply while feeding. Stressed signs of adequate intake, keeping feedings/elimination on blue flow sheet and supplementation after . Reviewed pumping after feedings using the shield and to call if nipple pain becomes more painful. Mother is able to independently latch infant with appropriate positioning/alignment using nipple shield. She is feeding as required and waking infant to feed if needed. Mother continues to work with deep latch. Infant has had at least 8 effective feedings in the past 24 hours, and is currently meeting outcomes for weight, output, jaundice and feeding frequencies. Mother states she feels confident to continue effective at home. Reviewed transition to breast milk, signs of adequate intake, and engorgement/relief. Instructed to call ICP if intake/output less than required. Reviewed regular medications mother is taking. Information provided per Veronica. Reviewed community resources on the [facility] website and in the Mom/Baby guide. Information on outpatient services provided. Mother has no further questions at this time.
[2021-02-18 07:51] VITALS: BP 131/91; PULSE 98; RESP 20; TEMP 36.7; O2SAT 100
== END 2021-02-17 10:44 | disposition home or self-care (01) | DRG 807 ==
LOC: ANHOBOP 14:56 → ANHLDR 16:05 → ANHOBOP 16:06 → ANHLDR 16:06 → ANHOB2 02-16 08:46
PROVIDERS: Advanced Practice Midwife; Admitting Provider Obstetrics & Gynecology; Visit Provider Obstetrics & Gynecology
DX: O13.4 Gestational [pregnancy-induced] hypertension without significant proteinuria, complicating childbirth (principal); Z37.0 Single live birth; Z3A.38 38 weeks gestation of pregnancy; O70.1 Second degree perineal laceration during delivery; O69.81X0 Labor and delivery complicated by cord around neck, without compression, not applicable or unspecified
CPT/HCPCS: 36415; 59025; 80053; 81001; 82570; 84156; 84550; 85014; 85018; 85025; 86592; 86850; 86900; 86901; 87086; 88307; A9270; J2590; J2795

== ENCOUNTER 2021-09-24 12:18 | Observation (INO) | payer BC, SELFPAY ==
--- NOTE | 2021-09-24 12:18 | OBADM ---
This patient, Loretta Zaragoza, admitted to the OB room OB Post 116 for observation. Patient/family oriented to hospital policies and general routines including ID bracelet, bed and alarms, visiting hours, pain management, procedures, bathroom and other care routines, personal items, smoking policy, room service/diet, and visiting hours. Patient/Family are encouraged to report perceived risks to care and to ask questions if they do not understand what they are told or what they should do.
[2021-09-24 12:30] VITALS: BMI 24.0
[2021-09-24 12:55] VITALS: TEMP 37.4
[2021-09-24 12:56] VITALS: BP 109/67; PULSE 101
[2021-09-24] MEDS: DEXTROSE 5%/LACTATED RINGERS 1,000 ML 999 ML IV CONT (13:02)
[2021-09-24] MEDS: FAMOTIDINE 20 MG/2 ML VIAL IV PUSH (13:03)
[2021-09-24] MEDS: ONDANSETRON INJ 4 MG/2 ML VIAL IV PUSH (13:03)
[2021-09-24 13:28] LABS: Add Urine Microscopic? YES; Appearance Urine Cloudy (Clear); Bacteria Urine Trace /hpf; Bilirubin Urine Negative (Negative); Blood Urine Negative (Negative); Color Urine Yellow (Yellow); Glucose Urine UA Negative (Negative); Ketones Urine 2+ mg/dL (Negative); Leukocyte Esterase Ur Negative LEU/UL (NEGATIVE); Mucus Urine Heavy /lpf; Nitrate Urine Negative (Negative); Protein Urine 1+ mg/dL (Negative); Specific Grav Ur 1.029 (1.001-1.035); Squamous Epithelial Cell Urine Few /hpf (Few); Urobilinogen Urine Negative mg/dL (<2.0); WBC Urine 0-3 /hpf (0-3)
[2021-09-24 14:59] LABS: Basophils Percent Auto 0.3 % (0.2-1.2); Eosinophils Absolute Auto 0.1 K/mm3 (0-0.3); Eosinophils Percent Auto 0.6 % (0-4.4); Hemoglobin 12.6 g/dL (12.0-15.0); Immature Granulocyte Absolute 0.04 K/mm3 (0.00-0.031); Immature Granulocyte Percent A 0.4 % (0-0.5); Lymphocytes Absolute Auto 0.78 K/mm3 (0.9-3.2); Lymphocytes Percent Auto 7.5 % (18.3-44.2); Mean Corpuscular Hemoglobin 30.9 pg (26-34); Mean Corpuscular Volume 88.2 fl (80-100); Mean Platelet Volume 9.3 fl (7.4-10.4); Monocytes Absolute Auto 0.6 K/mm3 (0.1-0.6); Monocytes Percent Auto 6.1 % (2.6-8.5); Neutrophils Absolute Auto 8.9 K/mm3 (1.3-6.7); Neutrophils Percent Auto 85.1 % (45.5-73.1); Platelet Count Result 201 k/mm3 (150-375); Red Blood Count 4.08 M/mm3 (4.2-5.4); Red Cell Distribution Width 12.5 % (11.5-14.5); White Blood Count 10.4 K/mm3 (4.5-10.0)
[2021-09-24 15:09] LABS: Alanine Aminotransferase 15 U/L (4-35); Albumin Level 4.1 g/dL (3.5-5.1); Alkaline Phosphatase 50 U/L (38-126); Anion Gap 3 mmol/L (8-16); Aspartate Amino Transferase 23 U/L (14-36); Bilirubin,Total 1.4 mg/dL (0.2-1.3); Blood Urea Nitrogen 8 mg/dL (7-17); Calcium 9.4 mg/dL (8.4-10.2); Carbon Dioxide 27 mmol/L (22-30); Chloride 104 mmol/L (98-107); Estimated CRCL calculation 117 ml/min; Estimated Glomerular Filt Rate > 60; Glucose 134 mg/dL (65-110); Potassium 3.8 mmol/L (3.4-5.0); Sodium 134 mmol/L (137-145)
--- NOTE | 2021-09-24 16:30 | PM.IMHP ---
H&P: HPI History of Present Illness Date/Time: 09/24/21 16:30 Chief Complaint: pt in observation for nausea and vomiting, unable to keep anything down at home, hx hyperemesis, no meds currently with this . daughter at home also not feeling well Review of Systems Review of Systems: All systems reviewed & are unremarkable except as noted in HPI and below PMFSH Past Medical History Medical History (Updated 01/16/21 @ 10:54 by Kelsi Lea CNM) Healthy female adult Surgical History Surgical History (Updated 11/24/20 @ 20:43 by Tyler Payne MD) No history of previous surgery Family History Family History (Updated 01/30/21 @ 13:34 by Ilya Sandoval RN) Other Unknown family medical history Social History Social History Smoking status: Never smoker Substance use: never Gender identity (if verbalized by the patient): Female Sexual Orientation (if Verbalized by the Patient): Straight or Heterosexual Spiritual care concerns: No Meds Home Medications and Allergies Home Medications Medication Instructions Recorded Confirmed Type prenat.vits,negro,pai-dyso-efhbr 1 tablet PO DAILY 01/05/21 02/15/21 History valacyclovir [Valtrex] 500 mg PO Q12H 01/30/21 02/15/21 History Allergies Allergy/AdvReac Type Severity Reaction Status Date / Time morphine Allergy Intermediate Rash Verified 11/04/18 19:53 Vital Signs Vital Signs - 24 hr 09/24/21 12:55 09/24/21 12:56 Temperature 37.4 C Pulse Rate 101 H Blood Pressure 109/67 Exam Const: General: cooperative and ill appearing Nutritional Appearance: average body habitus Limitations: no limitations H&P: Results Labs Labs: Short CBC 09/24/21 09/24/21 09/24/21 Range/Units 13:09 14:54 14:54 WBC 10.4 H (4.5-10.0) K/mm3 RBC 4.08 L (4.2-5.4) M/mm3 Hgb 12.6 D (12.0-15.0) g/dL Hct 36.0 L (37.0-47.0) % MCV 88.2 (80-100) fl MCH 30.9 (26-34) pg MCHC 35.0 (32-36) g/dl RDW 12.5 (11.5-14.5) % Plt Count 201 (150-375) k/mm3 MPV 9.3 (7.4-10.4) fl Immature Gran % (Auto) 0.4 (0-0.5) % Neut % (Auto) 85.1 H (45.5-73.1) % Lymph % (Auto) 7.5 L (18.3-44.2) % [place] % (Auto) 6.1 (2.6-8.5) % Eos % (Auto) 0.6 (0-4.4) % Baso % (Auto) 0.3 (0.2-1.2) % Lymph # (Auto) 0.78 L (0.9-3.2) K/mm3 [place] # (Auto) 0.6 (0.1-0.6) K/mm3 Eos # (Auto) 0.1 (0-0.3) K/mm3 Baso # (Auto) 0.0 (0.0-0.1) K/mm3 Abs Immat Gran (auto) 0.04 H (0.00-0.031) K/mm3 Absolute Neuts (auto) 8.9 H (1.3-6.7) K/mm3 Absolute Nucleated RBC 0.0 (0.0-0.012) K/mm3 Nucleated RBC % 0.0 (0.0-0.2) % Sodium 134 L (137-145) mmol/L Potassium 3.8 (3.4-5.0) mmol/L Chloride 104 (98-107) mmol/L Carbon Dioxide 27 (22-30) mmol/L Anion Gap 3 L (8-16) mmol/L BUN 8 (7-17) mg/dL Creatinine 0.50 L (0.7-1.0) mg/dL Estim Creat Clear Calc 117 ml/min Estimated GFR > 60 (59 - ) Glucose 134 H (65-110) mg/dL Calcium 9.4 (8.4-10.2) mg/dL Total Bilirubin 1.4 H (0.2-1.3) mg/dL AST 23 (14-36) U/L ALT 15 (4-35) U/L Alkaline Phosphatase 50 (38-126) U/L Total Protein 7.0 (6.3-8.2) g/dL Albumin 4.1 (3.5-5.1) g/dL Urine Color Yellow (Yellow) Urine Appearance Cloudy H (Clear) Urine pH 5.0 (5.0-9.0) Ur Specific [place] 1.029 (1.001-1.035) Urine Protein 1+ H (Negative) mg/dL Urine Glucose (UA) Negative (Negative) mg/dL Urine Ketones 2+ H (Negative) mg/dL Ur Blood (Man) Negative (Negative) Urine Nitrate Negative (Negative) Urine Bilirubin Negative (Negative) Urine Urobilinogen Negative (<2.0) mg/dL Ur Leukocyte Esterase Negative (NEGATIVE) RUFINA/UL Urine RBC 3-5 H (0-2) /hpf Urine WBC 0-3 (0-3) /hpf Ur Squamous Epith Cells Few (Few) /hpf Urine Bacteria Trace /hpf Hyaline Casts 3-4 H (None) /lpf Urine Mucus Heavy H /lpf
--- NOTE | 2021-09-24 16:50 | PC.NURSE ---
Called Ronnell Herrera CNM with update. Pt requesting to go home. States that she feels better and is taking sips of water without vomiting. Also states that her is having a breakdown at home with the baby and needs to go. May D/C home with Zofran prescription.
--- NOTE | 2021-09-27 07:29 | PM.OBDSVD ---
DS: Admitting Diagnosis Discharge Date 09/24/21 Admitting Diagnosis nausea and vomiting OB - DS: Summary OB Procedures : None OB Procedures Intrapartum: Other (undelivered) OB Procedures: : Other (undelivered) Time Spent with Patient Time attestation: Total time spent providing and/or coordinating discharge services: Discharge Plan Discharge Consulting providers: Lindsay Herrera Discharging Clinician: Lindsay Herrera Patient Disposition: Home, Self-Care Activity: as tolerated Diet: regular Discharge Instructions: OB ANTEPARTUM DISCHARGE INSTRUCTIONS This information is given to help you properly care for yourself at home after your discharge from the hospital. Follow these instructions until your doctor tells you otherwise. DIET: Eat Three Well Balanced Meals per Day Drink at Least Eight 8-Ounce Glasses of Caffeine-Free Beverages Daily Additional Diet Instructions: ACTIVITY: As Tolerated Increase Periods of Rest Additional Activity Instructions: RETURN TO LABOR AND DELIVERY IF YOU HAVE: Any Leakage of Fluid More than 6 Contractions in an Hour Vaginal Bleeding Additional Reasons to Return to Labor and Delivery: Contractions may feel like abdominal pain, tightening, cramping, pressure, back ache, or thigh ache. OTHER INSTRUCTIONS: FOLLOW-UP CARE: Keep Next Scheduled Appointment To see in/on Valuables released to patient or family? Medications from home returned to patient? I Acknowledge Receipt of and Understand the Above Instructions IF YOU HAVE ANY QUESTIONS REGARDING THESE INSTRUCTIONS, PLEASE CALL [phone]. IF PROBLEMS ARISE, CALL YOUR PROVIDER. IF EMERGENCY CARE IS NEEDED, [facility] EMERGENCY ROOM IS AVAILABLE 24 HOURS A DAY. Stand Alone Forms: General Discharge Information Follow-up/Referrals: Lindsay Herrera CNM [Certified Nurse Planning Director] - Discharge Medications: New ondansetron 4 mg Tablet,Disintegrating 4 mg PO Q6H PRN (Reason: Nausea And Vomiting) Qty: 30 RF: 0 Continued valacyclovir [Valtrex] 500 mg Tablet 500 mg PO Q12H RF: 0 prenat.vits,negro,zze-jddz-xtffg Tablet 1 tablet PO DAILY RF: 0 Date of admission: 09/24/21 12:18 Primary Care Provider: PHYSICIAN,[employer]LLF[employer] SHUCKER Admitting Provider: Karen Mack Attending physician on admission: Karen Mack Condition: Stable
== END 2021-09-24 17:00 | disposition home or self-care (01) ==
PROVIDERS: Advanced Practice Midwife; Admitting Provider Obstetrics & Gynecology; Visit Provider Obstetrics & Gynecology
DX: O26.891 Other specified pregnancy related conditions, first trimester (principal); R11.2 Nausea with vomiting, unspecified; Z3A.12 12 weeks gestation of pregnancy
CPT/HCPCS: 36415; 80053; 81001; 85025; 96374; 96375; G0378; G0379; J2405; J7121

== ENCOUNTER 2022-01-05 10:01 | Observation (INO) | payer BC, SELFPAY ==
[2022-01-05] VITALS (13 sets, daily range): BP systolic 100–114; BP diastolic 47–77; PULSE 78–125; RESP 16–19; TEMP 36.4–37.1; O2SAT 98–100; BMI 25.9
--- NOTE | ~2022-01-05 | CT_ITS ---
EXAMINATION: CT brain wo con DATE: 01/06/2022 15:13 INDICATION: Dizziness and vertigo TECHNIQUE: Computed tomography (CT) of the head was performed without intravenous contrast. Sagittal and coronal reconstructions were performed. The mA was adjusted according to patient size. Iterative reconstruction technique was employed. The dose-length product was 605.33 mGy-cm. COMPARISON: None FINDINGS: No acute intracranial hemorrhage, acute infarction or abnormal extra axial fluid collection. Ventricl es are normal and symmetric. No mass/mass effect. The orbits, paranasal sinuses and mastoid air cells are normal. IMPRESSION: 1. Normal head CT Reviewed, dictated and finalized at location A. [employer] ENG[employer] IMPRESSION: 1. Normal head CT
[2022-01-05] MEDS: SODIUM CHLORIDE 0.9% IV 1,000 ML 999 ML IV CONT (11:12)
[2022-01-05] MEDS: ONDANSETRON INJ 4 MG/2 ML VIAL IV PUSH ×2 (11:12→16:11)
[2022-01-05] MEDS: MECLIZINE HCL 25 MG TABLET PO (11:18)
--- NOTE | 2022-01-05 11:40 | PC.NURSE ---
reports nausea improved continues to be dizzy
[2022-01-05 13:33] LABS: Basophils Percent Auto 0.2 % (0.2-1.2); Hematocrit 31.6 % (37.0-47.0); Hemoglobin 10.5 g/dL (12.0-15.0); Immature Granulocyte Absolute 0.12 K/mm3 (0.00-0.031); Immature Granulocyte Percent A 0.7 % (0-0.5); Lymphocytes Absolute Auto 0.98 K/mm3 (0.9-3.2); Lymphocytes Percent Auto 6.1 % (18.3-44.2); Mean Corpuscular HGB Conc 33.2 g/dl (32-36); Mean Corpuscular Hemoglobin 30.4 pg (26-34); Mean Corpuscular Volume 91.6 fl (80-100); Mean Platelet Volume 10.4 fl (7.4-10.4); Monocytes Absolute Auto 0.5 K/mm3 (0.1-0.6); Monocytes Percent Auto 3.4 % (2.6-8.5); Neutrophils Absolute Auto 14.4 K/mm3 (1.3-6.7); Neutrophils Percent Auto 89.6 % (45.5-73.1); Platelet Count Result 203 k/mm3 (150-375); Red Blood Count 3.45 M/mm3 (4.2-5.4); Red Cell Distribution Width 12.8 % (11.5-14.5); White Blood Count 16.1 K/mm3 (4.5-10.0)
--- NOTE | 2022-01-05 13:41 | PC.NURSE ---
ATTEMPTED TO AMBULATE PT AND UNABLE DUE TO INCREASED DIZZINESS WITH SITTING UP
--- NOTE | 2022-01-05 13:42 | PC.NURSE ---
OB NURSE AT BEDSIDE FOR NTS
[2022-01-05 13:51] LABS: Alanine Aminotransferase 10 U/L (4-35); Albumin Level 3.4 g/dL (3.5-5.1); Alkaline Phosphatase 82 U/L (38-126); Anion Gap 6 mmol/L (8-16); Aspartate Amino Transferase 18 U/L (14-36); Bilirubin,Total 0.5 mg/dL (0.2-1.3); Blood Urea Nitrogen 6 mg/dL (7-17); Calcium 7.9 mg/dL (8.4-10.2); Carbon Dioxide 22 mmol/L (22-30); Chloride 109 mmol/L (98-107); Estimated CRCL calculation 117 ml/min; Estimated Glomerular Filt Rate > 60; Glucose 85 mg/dL (65-110); Potassium 3.6 mmol/L (3.4-5.0); Sodium 137 mmol/L (137-145)
[2022-01-05 14:23] LABS: Add Urine Microscopic? YES; Appearance Urine Clear (Clear); Bacteria Urine Trace /hpf; Bilirubin Urine Negative (Negative); Blood Urine Negative (Negative); Color Urine Yellow (Yellow); Glucose Urine UA Negative (Negative); Ketones Urine 1+ mg/dL (Negative); Leukocyte Esterase Ur Trace LEU/UL (Negative); Mucus Urine Rare /lpf; Nitrate Urine Negative (Negative); Protein Urine Negative (Negative); Specific Grav Ur 1.015 (1.001-1.035); Squamous Epithelial Cell Urine Few /hpf (Few); Urobilinogen Urine Negative mg/dL (<2.0)
--- NOTE | 2022-01-05 14:34 | PC.NURSE ---
up to commode but became very nauseated and had emesis
--- NOTE | 2022-01-05 14:39 | ED.GENADULT ---
HPI - General Adult General Chief complaint: Dizziness Stated complaint: dizziness, vomiting-from OB- 27 weeks preg Time Seen by Provider: 01/05/22 10:49 History of Present Illness HPI narrative: Patient is a 31-year-old female who presents ER with nausea and vomiting dizziness. Ongoing for 2 days. Suddenly worsened today. Worse with position change and turning head. Makes her feel anxious and sweaty. Reports she has had some mild sinus congestion over the last week. No ear pain or tinnitus. No fevers or chills or sweats. Patient is 27 weeks . She is starting to have some abdominal cramping from her vomiting. No vaginal bleeding or discharge. No urinary symptoms. Related Data Home Medications Medication Instructions Recorded Confirmed prenat.vits,negro,ued-ubap-sqtah 1 tablet PO DAILY 01/05/21 02/15/21 valacyclovir [Valtrex] 500 mg PO Q12H 01/30/21 02/15/21 Allergies Allergy/AdvReac Type Severity Reaction Status Date / Time morphine Allergy Intermediate Rash Verified 01/05/22 10:42 Review of Systems Review of Systems: All systems reviewed & are unremarkable except as noted in HPI and below Constitutional: Constitutional: Denies chills, Denies fever(s) and Denies weakness Eyes: Eyes: Denies change in vision ENT: Reports dizziness, Reports nasal congestion and Denies sore throat Respiratory: Respiratory: Denies cough, Denies dyspnea and Denies wheezing Gastrointestinal: Gastrointestinal: Denies abdominal pain, Denies diarrhea, Reports nausea and Reports vomiting Genitourinary: Genitourinary: Denies abnormal vaginal bleeding, Denies nocturia, Denies dysuria and Denies flank pain Neurologic: Reports vertigo, Denies headache(s), Denies focal weakness and Denies numbness PMF Past Medical History Medical History (Updated 01/05/22 @ 14:54 by Tyler Payne MD) Healthy female adult Surgical History Surgical History (Updated 11/24/20 @ 20:43 by Tyler Payne MD) No history of previous surgery Family History Family History (Updated 01/30/21 @ 13:34 by Ilya Sandoval RN) Other Unknown family medical history Social History Social History Smoking status: Never smoker Substance use: never Gender identity (if verbalized by the patient): Female Sexual Orientation (if Verbalized by the Patient): Straight or Heterosexual Spiritual care concerns: No Exam Narrative: GENERAL: Uncomfortable l-appearing and actively vomiting, well-nourished. HEAD: Normocephalic, atraumatic. EYES: PERRLA and EOMI. left gaze nystagmus. ENT: Mucous membranes moist. CHEST: Clear to auscultation. No respiratory distress. HEART: Regular rate and rhythm. Normal peripheral pulses. ABDOMEN: Soft, nontender, nondistended. EXTREMITIES: Normal range of motion. No edema. SKIN: Warm, dry, no rash. NEURO: Alert and oriented x3. PSYCH: Normal mood and affect. Course Course Emergency Course: Patient still with active dizziness and cannot ambulate. Continues to have retching vomiting. Will admit to OB for observation, hydration and control of vertigo. Vital Signs Vital signs: Vital Signs Temperature 97.6 F 01/05/22 10:08 Pulse Rate 125 H 01/05/22 10:08 Respiratory Rate 19 01/05/22 10:08 Blood Pressure 112/72 01/05/22 10:08 Pulse Oximetry 100 01/05/22 10:08 Temperature 97.7 F 01/05/22 13:30 Pulse Rate 102 H 01/05/22 14:16 Respiratory Rate 16 01/05/22 13:30 Blood Pressure 111/77 01/05/22 14:16 Pulse Oximetry 100 01/05/22 13:30 Medical Decision Making Vital Signs Vital Signs: Vital Signs Temperature 97.6 F 01/05/22 10:08 Pulse Rate 125 H 01/05/22 10:08 Respiratory Rate 19 01/05/22 10:08 Blood Pressure 112/72 01/05/22 10:08 Pulse Oximetry 100 01/05/22 10:08 Temperature 97.7 F 01/05/22 13:30 Pulse Rate 102 H 01/05/22 14:16 Respiratory Rate 16 01/05/22 13:30 Blood Pressure 111/77 01/05/22 14:16 Pulse Oximetry 100
[2022-01-05] MEDS: SODIUM CHLORIDE 0.9% IV 1,000 ML 125 ML IV CONT (15:06)
--- NOTE | 2022-01-05 15:51 | OBADM ---
This patient, Loretta Zaragoza, admitted to the OB room 116 at 1515 from ED per stretcher for observation. Patient/family oriented to hospital policies and general routines including ID bracelet, bed and alarms, visiting hours, pain management, procedures, bathroom and other care routines, personal items, smoking policy, room service/diet, and visiting hours. Patient/Family are encouraged to report perceived risks to care and to ask questions if they do not understand what they are told or what they should do.
--- NOTE | 2022-01-05 16:15 | PC.NURSE ---
Ronnell Herrera CNM here and in to see pt. Additional orders received.
[2022-01-05] MEDS: SCOPOLAMINE 1.5 MG PATCH TRANSDERM (17:14)
[2022-01-05] MEDS: MECLIZINE HCL 12.5 MG TABLET PO ×2 (17:22→23:19)
[2022-01-05] MEDS: DEXTROSE 5%/LACTATED RINGERS 1,000 ML 125 ML IV CONT (17:40)
[2022-01-05 18:21] LABS: Influenza A QL RT-PCR Negative (Negative); Influenza B QL RT-PCR Negative (Negative); SARS-CoV-2 RNA PCR Negative
[2022-01-05] MEDS: FAMOTIDINE 20 MG TABLET PO (19:27)
[2022-01-06] VITALS (10 sets, daily range): BP systolic 83–102; BP diastolic 47–56; PULSE 78–89; TEMP 36.4–37.3
[2022-01-06] MEDS: DEXTROSE 5%/LACTATED RINGERS 1,000 ML 125 ML IV CONT (01:57)
[2022-01-06] MEDS: MECLIZINE HCL 12.5 MG TABLET PO ×3 (05:43→19:15)
--- NOTE | 2022-01-06 09:00 | PC.NURSE ---
Niranjan Lea CNM at bedside. Pt assessed and plan of care discussed.
--- NOTE | 2022-01-06 09:02 | PM.IMHP ---
H&P: HPI History of Present Illness Date/Time: 01/06/22 09:02 31 y/o G2 @ 27 weeks gestation here with complaints of dizziness, nausea and vomiting. dizzy x 2 while up. Saturday dizzy in the morning with stumbling and within a couple hours started vomiting. Dizziness has persisted even with lying down. This morning the vomiting has resolved and nausea improved. Chief Complaint: Dizziness, nausea and vomiting Review of Systems Review of Systems: All systems reviewed & are unremarkable except as noted in HPI and below Constitutional: Constitutional: Reports as per HPI and Reports no additional constitutional complaints Eyes: Eyes: Reports as per HPI ENT: Reports system reviewed and no additional complaints, except as documented Cardiovascular: Cardiovascular: Reports as per HPI Respiratory: Respiratory: Reports as per HPI Gastrointestinal: Gastrointestinal: Reports as per HPI, Reports nausea and Reports vomiting Genitourinary: Genitourinary: Reports no additional female genitourinary complaints Musculoskeletal: Musculoskeletal: Reports no additional musculoskeletal complaints Integumentary/Breasts: Skin/Breast: Reports system reviewed and no additional complaints, except as docu Neurologic: Reports abnormal gait and Reports dizziness Psychiatric: Psychiatric: Reports no additional psychiatric complaints Endocrine: Endocrine: Reports no additional endocrine complaints Hematologic/Lymphatic: Hematologic/Lymphatic: Reports no additional hematologic/lymphatic complaints Allergic/Immunologic: Allergic/Immunologic: Reports no additional allergic/immunologic complaints [facility] Past Medical History Medical History Healthy female adult Surgical History Surgical History No history of previous surgery Family History Family History Other Unknown family medical history Social History Social History Smoking status: Never smoker Substance use: never Gender identity (if verbalized by the patient): Female Sexual Orientation (if Verbalized by the Patient): Straight or Heterosexual Spiritual care concerns: No Meds Home Medications and Allergies Home Medications Medication Instructions Recorded Confirmed Type prenat.vits,negro,dea-nmvz-gdojd 1 tablet PO DAILY 01/05/21 01/06/22 History valacyclovir [Valtrex] 500 mg PO Q12H 01/30/21 02/15/21 History ondansetron 4 mg PO Q6H PRN #30 tablet 09/24/21 01/06/22 Rx Allergies Allergy/AdvReac Type Severity Reaction Status Date / Time morphine Allergy Intermediate Rash Verified 01/05/22 10:42 Vital Signs Vital Signs - 24 hr 01/05/22 10:08 01/05/22 11:38 01/05/22 12:30 Temperature 97.6 F 98.7 F 97.6 F Pulse Rate 125 H 104 H 81 Respiratory Rate 19 16 16 Blood Pressure 112/72 108/76 106/71 Blood Pressure [Left Arm] Pulse Oximetry 100 100 100 01/05/22 13:30 01/05/22 14:16 01/05/22 14:30 Temperature 97.7 F 97.6 F Pulse Rate 86 102 H 103 H Respiratory Rate 16 16 Blood Pressure 103/63 112/68 Blood Pressure [Left Arm] 111/77 Pulse Oximetry 100 100 01/05/22 15:04 01/05/22 15:47 01/05/22 16:00 Temperature 98.3 F Pulse Rate 102 H 106 H 106 H Respiratory Rate 18 16 Blood Pressure 112/64 114/61 Blood Pressure [Left Arm] Pulse Oximetry 98 01/05/22 16:03 01/05/22 19:16 01/05/22 19:29 Temperature 98.3 F Pulse Rate 113 H 102 H Respiratory Rate Blood Pressure 100/51 L Blood Pressure [Left Arm] 112/64 Pulse Oximetry 01/05/22 23:07 01/06/22 05:43 01/06/22 05:45 Temperature 98.3 F 99.1 F Pulse Rate 78 81 86 Respiratory Rate Blood Pressure 103/47 L 90/47 L 91/48 L Blood Pressure [Left Arm] Pulse Oximetry 01/06/22 08:01 Temperature Pulse Rate 85 Respiratory Rate Blood Pres
[2022-01-06] MEDS: ACETAMINOPHEN 325 MG TABLET 650 MG PO (09:19)
[2022-01-06] MEDS: diphenhydrAMINE HCl CAP 25 MG CAPSULE PO (09:19)
--- NOTE | 2022-01-06 10:00 | PC.NURSE ---
Called Dr. Luther called. Report given on pt. Will come to see pt.
--- NOTE | 2022-01-06 10:20 | PC.NURSE ---
Pt states that dizziness is decreased. She states that she only feels dizzy with movement or standing.
--- NOTE | 2022-01-06 14:25 | PC.NURSE ---
Dr. Luther at bedside to assess pt and discuss plan of care.
--- NOTE | 2022-01-06 14:37 | PM.IMCN ---
Assessment and Plan Assessment and plan (1) Second trimester : Code(s): Z34.92 - Encounter for supervision of normal , unspecified, second trimester Status: Acute (2) Nausea & vomiting: Code(s): R11.2 - Nausea with vomiting, unspecified Status: Acute (3) Vertigo: Code(s): R42 - Dizziness and giddiness Status: Acute (4) Leukocytosis: Code(s): D72.829 - Elevated white blood cell count, unspecified Status: Acute Additional Plan # dizziness: symptoms suggestive of vertigo. acute onset.assocaited nausea, vomiting presence of nystagmus on examination. no prior history of similar illness in the past. recent uri symptoms. orthostatic was negative however does have lowish blood pressure. She was treated with IV fluids with some improvement along with other supportive treatment like meclizine and Compazine. will get ct head to rule out any intracranial etiology. suggestive of vestibular neuritis or labrynthitis. other differentials could be BPPV but no prior hx of similar symptoms in the past. will rule out ay intracranial pathology with ct head woc. no middle ear symtpoms noted. continue current symptomatic managment with meclizine scheudled. will increase the dose to 25 mg po q6hrs prn. The symptmos of vestibiular neuritis typically resolves within few days to a week. # 2nd trimester : per ob # nausea vomiting: this is likely related to her vertigo. this has now resovled with symptomatic management. # leukocytosis: unclear etiolgoy. ?reactive. will recheck in am. Thank you for the consultation. will follow CT head. labs reviewed and discussed with the patient and the nursing staff. HPI Data of Consult Consult date: 01/06/22 Requesting Physician: Karen Mack MD Primary Care Provider: Emanuel Oswald, DO Consult Narrative Narrative: Loretta Zaragoza is a 31 year old female who presents to the ER yesterday with nausea vomiting and dizziness. She reports that the dizziness started about 2 days ago and notices when she went to a gas station on . It worsened on Saturday and and is disc has been constant since then. She feels the dizziness worsens whenever she moves and turns her head. She reports she has been having mild sinus congestion of the past weekend most of the other family members at home was feeling the same. She is about 27 weeks . She denies any fever chills sweating or urinary complaints with no burning or frequency of urination. She denies any abdominal pain. No vaginal bleed or discharge. She was admitted to the labor and delivery floor and was given symptomatic treatment with meclizine and Compazine but has remained symptomatic and hence consultation was requested. She does report that she has improved quite a bit from when she came in. She however does feel dizzy when she stands up and feels drunk. She denies any runny nose or earaches or tinnitus or hearing loss. Review of Systems Review of Systems: - CONSTITUTIONAL: Denies weight loss, fever and chills. - HEENT: Denies changes in vision and hearing - RESPIRATORY: Denies SOB and cough. - CV: Denies palpitations and CP. - GI: Denies abdominal pain, reports nausea, vomiting and denies diarrhea. - : Denies dysuria and urinary frequency. - MSK: Denies myalgia and joint pain. - SKIN: Denies rash and pruritus. - NEUROLOGICAL: Denies headache and syncope. - PSYCHIATRIC: Denies recent changes in mood. Denies anxiety and depression. All systems reviewed & are unremarkable except as noted in HPI and below PMFSH Past Medical History Medical History Healthy female adult Surgical History Surgical History No history of previous surgery Family History Family History Other Unknown family medical
[2022-01-06] MEDS: FLUTICASONE PROPIONATE 0.05% NA SPR 16 GM BTL (*BKC) 1 SPRAY NASAL (16:57)
[2022-01-07 01:02] VITALS: BP 95/58; PULSE 78
[2022-01-07] MEDS: MECLIZINE HCL 12.5 MG TABLET PO ×2 (01:05→07:20)
[2022-01-07] MEDS: FAMOTIDINE 20 MG TABLET PO (03:15)
[2022-01-07] MEDS: FLUTICASONE PROPIONATE 0.05% NA SPR 16 GM BTL (*BKC) 1 SPRAY NASAL (07:21)
[2022-01-07 07:25] VITALS: BP 99/62; PULSE 85
[2022-01-07 08:12] VITALS: BP 99/62
--- NOTE | 2022-01-07 08:32 | WPDHPUPDATE1 ---
History and Physical Update Update Date/Time: 01/07/22 08:32 Doing much better today. No nausea or vomiting and dizziness minimal. Testing yesterday was normal. Will await hospitalist recommendations. History and Physical has been reviewed, including an updated exam of the patient. There are NO changes in the patient's condition. Risks, benefits, and alternatives have been discussed and questions answered. Patient agrees to proceed with procedure.
--- NOTE | 2022-01-07 11:24 | PM.IMPN ---
Progress Note: A&P Assessment and Plan (1) Vertigo: Code(s): R42 - Dizziness and giddiness Status: Acute Assessment and Plan: -acute onset vertigo with associated nausea, vomiting. She describes sensation as room spitting, not light headed -no prior history of similar in the past -did have recent URI symptoms -CT head negative, no focal neurological deficits -differential includes vestibular neuritis, labyrinthitis, BPPV. Labyrhthisis less likely as she denies hearing loss. BPPV less likely as she has never had simlar symptoms in the past. -vestibular neuritis fits clinical picture with recent URI and sudden onset of symptoms without hearing loss. She has improved significantly with symptomatic treatment including meclizine, IVF, Phenergan. -at this point I believe pt is stable for discharge. Will provide a few meclizine to use prn however will not continue it past tomorrow to avoid central compensation. -neurology referral provided if her symptoms should persist, however I imagine they will continue to improve gradually over the next few days/weeks (2) Leukocytosis: Code(s): D72.829 - Elevated white blood cell count, unspecified Status: Acute Assessment and Plan: -likely secondary to and vomiting -repeat CBC in 1 week -OBGYN follow up (3) Second trimester : Code(s): Z34.92 - Encounter for supervision of normal , unspecified, second trimester Status: Acute Assessment and Plan: -management per OB -no acute issues (4) Nausea & vomiting: Code(s): R11.2 - Nausea with vomiting, unspecified Status: Acute Assessment and Plan: -secondary to above -symptomatic management -resolved Subjective Date/time seen: 01/07/22 11:24 Interval history: 31 yo female 27 weeks admitted for vertigo. Hospitalist service was consulted as we do not have neurology this weekend. Pt is feeling much better. Symptoms have dramatically improved. Still has some vertigo when she moves her head too quickly. Nausea has resolved. No STEWART, vision changes, paraesthesias, motor weakness. Review of Systems Review of Systems: All systems reviewed & are unremarkable except as noted in HPI and below Exam Narrative: GENERAL: well looking, well-nourished no acute distress HEAD: Normocephalic, atraumatic. EYES: PERRLA and EOMI. nystagmus present on lateral gaze ENT: Mucous membranes moist. CHEST: Clear to auscultation. No respiratory distress. HEART: Regular rate and rhythm. Normal peripheral pulses. ABDOMEN: , non tender EXTREMITIES: Normal range of motion. No edema. SKIN: Warm, dry, no rash. NEURO: Alert and oriented x3. PSYCH: Normal mood and affect. Objective Data Vital Signs Vital Signs: Vital Signs - 24 hr 01/06/22 13:16 01/06/22 16:50 01/06/22 16:52 Temperature 98.5 F 98.4 F Pulse Rate 86 78 Blood Pressure 83/47 L 97/50 L 01/07/22 01:02 01/07/22 07:25 Temperature Pulse Rate 78 85 Blood Pressure 95/58 L 99/62 L Intake/Output Intake/Output: Intake & Output 01/04/22 01/05/22 01/06/22 01/08/22 23:59 23:59 23:59 00:59 Intake Total 1305 2600 Output Total 325 2950 Balance 980 -350 Meds/Results Medications: Active Medications Generic Name Dose Route Start Last Admin Trade Name Freq PRN Reason Stop Dose Admin Acetaminophen 650 mg 01/05/22 14:50 01/06/22 09:19 Acetaminophen 325 Mg Tablet PO 650 mg Q4H PRN Administration Mild Pain (1-3) or Fever Fluticasone Propionate 1 spray 01/06/22 21:00 01/07/22 07:21 Fluticasone Propionate 0.05% Na Spr 16 Gm Btl (*Bkc) NASAL 1 spray Q12HR DENILSON Administration Dextrose/Lactated Ringer's 1,000 mls @ 125 mls/hr 01/05/22 16:20 01/06/22 10:10 Dextrose 5%/Lactated Ringers IV CONT Infused .Q8H DENILSON Infusion Meclizine HCl 12.5 mg 01/05/22 17:00 01/07/22 07:20 Meclizine Hcl 12.5 Mg Tablet PO 1
--- NOTE | 2022-01-24 02:30 | PM.OBTRLD ---
OB - Triage/Final Diagnosis Visit Information Comments/Additional reasons for admission: I have assessed the risk for this patient, Loretta Zaragoza, and determined that she would benefit from observation care. Evaluation Laboratory results: Laboratory Tests 01/05/22 01/05/22 01/05/22 13:27 13:27 14:06 WBC 16.1 H RBC 3.45 L Hgb 10.5 L Hct 31.6 L MCV 91.6 MCH 30.4 MCHC 33.2 RDW 12.8 Plt Count 203 MPV 10.4 Immature Gran % (Auto) 0.7 H Neut % (Auto) 89.6 H Lymph % (Auto) 6.1 L [place] % (Auto) 3.4 Eos % (Auto) 0.0 Baso % (Auto) 0.2 Lymph # (Auto) 0.98 [place] # (Auto) 0.5 Eos # (Auto) 0.0 Baso # (Auto) 0.0 Abs Immat Gran (auto) 0.12 H Absolute Neuts (auto) 14.4 H Absolute Nucleated RBC 0.0 Nucleated RBC % 0.0 Sodium 137 Potassium 3.6 Chloride 109 H Carbon Dioxide 22 Anion Gap 6 L BUN 6 L Creatinine 0.50 L Estim Creat Clear Calc 117 Estimated GFR > 60 Glucose 85 Calcium 7.9 L Total Bilirubin 0.5 AST 18 ALT 10 Alkaline Phosphatase 82 Total Protein 6.0 L Albumin 3.4 L TSH (Reflex) Urine Color Yellow Urine Appearance Clear Urine pH 7.0 Ur Specific [place] 1.015 Urine Protein Negative Urine Glucose (UA) Negative Urine Ketones 1+ H Ur Blood (Man) Negative Urine Nitrate Negative Urine Bilirubin Negative Urine Urobilinogen Negative Leukocyte Esterase Rfl Trace H Urine RBC 3-5 H Urine WBC 4-6 H Ur Squamous Epith Cells Few Urine Bacteria Trace Urine Mucus Rare Influenza A (RT-PCR) Influenza B (RT-PCR) SARS-CoV-2 RNA (RT-PCR) 01/05/22 01/06/22 17:24 13:24 WBC RBC Hgb Hct MCV MCH MCHC RDW Plt Count MPV Immature Gran % (Auto) Neut % (Auto) Lymph % (Auto) [place] % (Auto) Eos % (Auto) Baso % (Auto) Lymph # (Auto) [place] # (Auto) Eos # (Auto) Baso # (Auto) Abs Immat Gran (auto) Absolute Neuts (auto) Absolute Nucleated RBC Nucleated RBC % Sodium Potassium Chloride Carbon Dioxide Anion Gap BUN Creatinine Estim Creat Clear Calc Estimated GFR Glucose Calcium Total Bilirubin AST ALT Alkaline Phosphatase Total Protein Albumin TSH (Reflex) 1.080 Urine Color Urine Appearance Urine pH Ur Specific [place] Urine Protein Urine Glucose (UA) Urine Ketones Ur Blood (Man) Urine Nitrate Urine Bilirubin Urine Urobilinogen Leukocyte Esterase Rfl Urine RBC Urine WBC Ur Squamous Epith Cells Urine Bacteria Urine Mucus Influenza A (RT-PCR) Negative Influenza B (RT-PCR) Negative SARS-CoV-2 RNA (RT-PCR) Negative Final Diagnosis (1) Vertigo: Code(s): R42 - Dizziness and giddiness Status: Acute
== END 2022-01-07 12:59 | disposition home or self-care (01) ==
LOC: ANHED 14:54 → ANHOBPP 15:02
PROVIDERS: Advanced Practice Midwife; Admitting Provider Obstetrics & Gynecology; Emergency Provider Emergency Medicine; PCP Student in an Organized Health Care Education/Training Program; Visit Provider Obstetrics & Gynecology
DX: O26.92 Pregnancy related conditions, unspecified, second trimester (principal); R42 Dizziness and giddiness; O21.9 Vomiting of pregnancy, unspecified; D72.829 Elevated white blood cell count, unspecified; Z3A.27 27 weeks gestation of pregnancy; Z20.822 Contact with and (suspected) exposure to COVID-19
CPT/HCPCS: 36415; 59025; 70450; 80053; 81001; 84443; 85025; 87502; 96361; 96374; 96376; 99285; A9270; C9803; G0378; J2405; J7030; J7121; U0003; U0005

== ENCOUNTER 2022-02-10 16:30 | Observation (INO) | payer BC, SELFPAY ==
[2022-02-10] VITALS (21 sets, daily range): BP systolic 109–119; BP diastolic 61–75; PULSE 97–126; O2SAT 97–100; BMI 26.9
[2022-02-10] MEDS: TERBUTALINE SULFATE 1 MG/ML VIAL 0.25 MG SUB-Q (17:08)
[2022-02-10 17:10] LABS: Add Urine Microscopic? YES; Appearance Urine Cloudy (Clear); Bilirubin Urine Negative (Negative); Blood Urine Trace-Intact (Negative); Color Urine Yellow (Yellow); Glucose Urine UA Negative (Negative); Ketones Urine Negative (Negative); Leukocyte Esterase Ur 3+ LEU/UL (Negative); Nitrate Urine Negative (Negative); Protein Urine Negative (Negative); Specific Grav Ur 1.015 (1.001-1.035); Urobilinogen Urine 0.2 mg/dL (<2.0)
[2022-02-10 17:16] LABS: Squamous Epithelial Cell Urine Few /hpf (Few); WBC Urine 31-50 /hpf
[2022-02-10 18:22] LABS: Fetal Fibronectin Negative
[2022-02-10] MEDS: BETAMETHASONE SOD PHOS/ACETATE 30 MG/5 ML VIAL 12 MG IM (18:35)
--- NOTE | 2022-02-14 07:37 | PM.OBTRLD ---
OB - Triage/Final Diagnosis Visit Information Date of evaluation: 02/10/22 Reason for evaluation: threatened labor Comments/Additional reasons for admission: I have assessed the risk for this patient, Loretta Zaragoza, and determined that she would benefit from observation care. Evaluation Laboratory results: Laboratory Tests 02/10/22 02/10/22 16:53 17:12 Urine Color Yellow Urine Appearance Cloudy H Urine pH 7.0 Ur Specific [place] 1.015 Urine Protein Negative Urine Glucose (UA) Negative Urine Ketones Negative Ur Blood (Man) Trace-intact Urine Nitrate Negative Urine Bilirubin Negative Urine Urobilinogen 0.2 Leukocyte Esterase Rfl 3+ H Urine RBC 3-5 H Urine WBC 31-50 H Ur Squamous Epith Cells Few Fibronectin Negative
== END 2022-02-10 18:56 | disposition home or self-care (01) ==
PROVIDERS: Advanced Practice Midwife; Admitting Provider Obstetrics & Gynecology; PCP Student in an Organized Health Care Education/Training Program; Visit Provider Obstetrics & Gynecology
DX: O47.03 False labor before 37 completed weeks of gestation, third trimester (principal); Z3A.32 32 weeks gestation of pregnancy
CPT/HCPCS: 81001; 82731; 87086; 96372; G0378; G0379; J0702; J3105

== ENCOUNTER 2022-02-11 18:24 | Outpatient (CLI) | payer BC, SELFPAY ==
[2022-02-11] MEDS: BETAMETHASONE SOD PHOS/ACETATE 30 MG/5 ML VIAL 12 MG IM (18:40)
== END 2022-02-11 18:45 | disposition home or self-care (01) ==
LOC: ANHOBOP 18:33 → ANHLDR 18:34
PROVIDERS: PCP Student in an Organized Health Care Education/Training Program; Visit Provider Obstetrics & Gynecology
DX: O36.8990 Maternal care for other specified fetal problems, unspecified trimester, not applicable or unspecified (principal)
CPT/HCPCS: 96372; 99199; J0702

== ENCOUNTER 2022-02-19 20:35 | Outpatient (RCR) | payer BC, SELFPAY | END 2022-05-20 23:59 | disposition home or self-care (01) | LOC: ANHOBOP 20:35 | PROVIDERS: PCP Student in an Organized Health Care Education/Training Program; Visit Provider Obstetrics & Gynecology | DX: O36.8130 Decreased fetal movements, third trimester, not applicable or unspecified (principal); Z3A.33 33 weeks gestation of pregnancy | CPT/HCPCS: 59025 ==

== ENCOUNTER 2022-03-09 20:43 | Observation (INO) | payer BC, SELFPAY ==
[2022-03-09 20:53] VITALS: BP 131/78; PULSE 106
[2022-03-09 21:00] VITALS: BP 111/85; PULSE 122
[2022-03-09 21:07] VITALS: BMI 26.6
--- NOTE | 2022-03-09 21:07 | OBADM ---
This patient, Loretta Zaragoza, admitted to the OB room Labor/Delivery/Recovery 105 for observation. Patient/family oriented to hospital policies and general routines including ID bracelet, bed and alarms, visiting hours, pain management, procedures, bathroom and other care routines, personal items, smoking policy, room service/diet, and visiting hours. Patient/Family are encouraged to report perceived risks to care and to ask questions if they do not understand what they are told or what they should do.
[2022-03-09 21:15] VITALS: BP 117/70; PULSE 99
[2022-03-09] MEDS: WITCH HAZEL 40 PADS 1 PAD TOPICAL (21:40)
[2022-03-09] MEDS: MAG HYDROX/AL HYDROX/SIMETH 30 ML UDC PO (21:45)
--- NOTE | 2022-03-14 07:15 | P.PNOB_ITS ---
OB - Triage/Final Diagnosis Visit Information Date of evaluation: 03/09/22 Reason for evaluation: other (hemorrhoid) Comments/Additional reasons for admission: I have assessed the risk for this patient, Loretta Zaragoza, and determined that she would benefit from ob servation care.
== END 2022-03-09 21:45 | disposition home or self-care (01) ==
PROVIDERS: Admitting Provider Obstetrics & Gynecology; PCP Student in an Organized Health Care Education/Training Program; Visit Provider Obstetrics & Gynecology
DX: O47.9 False labor, unspecified (principal); O46.90 Antepartum hemorrhage, unspecified, unspecified trimester; Z3A.00 Weeks of gestation of pregnancy not specified
CPT/HCPCS: 59025; A9270; G0378; G0379

== ENCOUNTER 2022-03-17 12:29 | Observation (INO) | payer BC, SELFPAY ==
--- NOTE | 2022-03-17 12:29 | OBADM ---
This patient, Loretta Zaragoza, admitted to the OB room Labor/Delivery/Recovery 106 for observation. Patient/family oriented to hospital policies and general routines including ID bracelet, bed and alarms, visiting hours, pain management, procedures, bathroom and other care routines, personal items, smoking policy, room service/diet, and visiting hours. Patient/Family are encouraged to report perceived risks to care and to ask questions if they do not understand what they are told or what they should do.
[2022-03-17 12:45] VITALS: BMI 27.2
[2022-03-17 13:01] VITALS: BP 115/70; PULSE 113
[2022-03-17 13:15] VITALS: BP 117/75; PULSE 110
[2022-03-17 13:31] VITALS: BP 111/68; PULSE 114
== END 2022-03-17 16:55 | disposition home or self-care (01) ==
PROVIDERS: Admitting Provider Obstetrics & Gynecology; PCP Student in an Organized Health Care Education/Training Program; Visit Provider Obstetrics & Gynecology
DX: O47.9 False labor, unspecified (principal); Z3A.00 Weeks of gestation of pregnancy not specified
CPT/HCPCS: G0378; G0379

== ENCOUNTER 2022-03-18 17:42 | Observation (INO) | payer BC, SELFPAY ==
[2022-03-18 19:12] VITALS: RESP 16; TEMP 36.6
== END 2022-03-18 20:46 | disposition home or self-care (01) ==
PROVIDERS: Admitting Provider Obstetrics & Gynecology; PCP Student in an Organized Health Care Education/Training Program; Visit Provider Obstetrics & Gynecology
DX: O47.9 False labor, unspecified (principal); Z3A.00 Weeks of gestation of pregnancy not specified
CPT/HCPCS: G0378; G0379

== ENCOUNTER 2022-03-23 16:08 | Observation (INO) | payer BC, SELFPAY ==
[2022-03-23 17:53] VITALS: BMI 27.6
--- NOTE | 2022-03-28 07:22 | PM.OBTRLD ---
OB - Triage/Final Diagnosis Visit Information Date of evaluation: 03/24/22 Reason for evaluation: threatened labor Comments/Additional reasons for admission: I have assessed the risk for this patient, Loretta Zaragoza, and determined that she would benefit from observation care.
== END 2022-03-23 17:50 | disposition home or self-care (01) ==
PROVIDERS: Admitting Provider Obstetrics & Gynecology; PCP Student in an Organized Health Care Education/Training Program; Visit Provider Obstetrics & Gynecology
DX: O47.9 False labor, unspecified (principal); Z3A.00 Weeks of gestation of pregnancy not specified
CPT/HCPCS: G0378; G0379

== ENCOUNTER 2022-03-24 22:07 | Inpatient (IN) | payer BC, SELFPAY ==
[2022-03-24] VITALS (30 sets, daily range): BP systolic 96–134; BP diastolic 44–98; PULSE 78–107; TEMP 36.6; O2SAT 94–100; BMI 27.6
--- OUTSIDE RECORDS SUMMARY | 2022-03-24 22:27 | XMS_ITS | Encounter Summary ---
:1990 Author Care Team Providers Name Role Phone Emanuel Oswald DO Primary Care Provider [phone] Reason for Visit None recorded. Assessment and Plan 1. History of pre-eclampsia ? non-stress test Discussion Note: None recorded.Patient educational handouts: No information available. Plan of Care Reminders Provider Appointments Induction 03/28/2022 5:00AM Lindsay juarez CNM Lab None recorded. ? ? Referral None recorded. ? ? Procedures None recorded. ? ? Surgeries None recorded. ? ? Imaging Non-stress Test 03/14/2022 [place] Medications Name Start Date ? ? meclizine 12.5 mg tablet ? TAKE 1 TABLET BY MOUTH EVERY 6 HOURS FOR 7 DAYS NE EDED FOR DIZZINESS nifedipine 10 mg capsule ? TAKE 1 CAPSULE BY MOUTH EVERY 6 HOURS NEEDED FOR C RAMPS ondansetron 4 mg disintegrating tablet ? DISSOLVE 1 TABLET ON THE TONGUE EVERY 6 HOURS NEED ED FOR NAUSEA OR VOMITING ? valacyclovir 500 mg tablet ? TAKE 1 TABLET BY MOUTH EVERY 12 HOURS Medications Administered None recorded. Vitals None recorded. Results Lab Results None recorded. Allergies Code Code System Name Reaction Severity Onset 7052 RxNorm Morphine ? ? ? Problems Name Status Onset Date Source ? Active 09/20/2021 ? Procedures Date Name Performed by ? 09/27/2019 Breast Biopsy Information not avai labremy Notes: left 10/28/2018 Colonoscopy Information not avai lable 10/28/2015 Insertion of Stent into Ureter Informati on not available
--- OUTSIDE RECORDS SUMMARY | 2022-03-24 22:27 | XMS_ITS | Encounter Summary ---
:1990 Author Care Team Providers Name Role Phone Emanuel Oswald DO Primary Care Provider [phone] Reason for Visit OB visit OB [id number] EDC 04/04/2022 lmp 06/28/2021 Assessment and Plan Assessment Note Patient is _38__weeks . Discuss ed plan. 1. Routine care Discussion Note: None recorded.Patient educational handouts: No information available. Plan of Care Reminders Provider Appointments Induction 03/28/2022 5:00AM Lindsay juarez CNM Lab None recorded. ? ? Referral None recorded. ? ? Procedures None recorded. ? ? Surgeries None recorded. ? ? Imaging None recorded. ? ? Medications Name Start Date ? ? meclizine [...] 12 HOURS Medications Administered None recorded. Vitals Height Weight BMI Blood Pressure 5 ft 3.75 in 161 lbs 27.9 kg/m2 124/82 mm[Hg] Results Lab Results None recorded. Allergies Code Code System Name Reaction Severity Onset 7052 RxNorm Morphine ? ? ? Problems Name Status Onset Date Source ? Active 09/20/2021 ? Procedures Date Name Performed by ? 09/27/20
--- OUTSIDE RECORDS SUMMARY | 2022-03-24 22:27 | XMS_ITS | Encounter Summary ---
:1990 Author Care Team Providers Name Role Phone Emanuel Oswald DO Primary Care Provider [phone] Reason for Visit OB visit OB [id number] EDC 04/04/2022 LMP 06/28/2021 Assessment and Plan Assessment Note Patient is _37__weeks . Discuss ed plan. 1. Routine care [...] BMI Blood Pressure 5 ft 3.75 in 159 lbs 27.5 kg/m2 113/73 mm[Hg] Results Lab Results None recorded. Allergies Code Code System Name Reaction Severity Onset 7052 RxNorm Morphine ? ? ? Problems Name Status Onset Date Source ? Active 09/20/2021 ? Procedures Date Name Performed by ? 09/27/20
--- OUTSIDE RECORDS SUMMARY | 2022-03-24 22:27 | XMS_ITS | Encounter Summary ---
:1990 Author Care Team Providers Name Role Phone Emanuel Oswald DO Primary Care Provider [phone] Reason for Visit None recorded. Assessment and Plan 1. High risk care ? US, obstetric, follow-up ? US, obstetric, biophysical profile + non-stress test Discussion Note: None recorded.Patient educational handouts: No information available. Plan of Care Reminders Provider Appointments Induction 03/28/2022 Lindsay Herrera CNM 5:00AM Lab None recorded. ? ? Referral None recorded. ? ? Procedures None recorded. ? ? Surgeries None recorded. ? ? Imaging US, Obstetric, Follow-up 03/21/2022 [place] ? US, Obstetric, Biophysical 03/21/2022 [place] Profile + Non-stress Test Medications Name Start Date ? ? meclizine [...]
--- OUTSIDE RECORDS SUMMARY | 2022-03-24 22:27 | XMS_ITS ---
:1990 Author Care Team Providers Name Role Phone JOSE JUNE DO Primary Care Provider [phone] Allergies Code Code System Name Reaction Severity Status Onset 7052 RxNorm Morphine ? ? Active ? Medications Name Status Start Date Stop Date ? ? ameda maite mis pump Completed ? 12/01/2020 cephalexin 500 mg capsule Completed ? 2020 TAKE 1 CAPSULE BY MOUTH EVERY 12 HOURS fluconazole 150 mg tablet Completed 01/09/20192019 take 1 tablet by oral route every other day Fluzone Quad (PF) 60 mcg (15 mcg x Completed ? 10/04/2020 4)/0.5 mL IM syringe levonorgestrel 0.15 mg-ethinyl estradiol 0.03 mg tablet Complete d 02/11/2019 11/11/2019 TAKE 1 TABLET BY MOUTH EVERY DAY levonorgestrel-ethinyl estradiol 0.1 mg-20 mcg tablet Completed ? 11/11/2019 take 1 tablet by oral route every day meclizine 12.5 mg tablet Active ? Not jaime ilable TAKE 1 TABLET BY MOUTH EVERY 6 HOURS FOR 7 DAYS NEEDED FOR D IZZINESS nifedipine 10 mg capsule Active ? Not jaime ilable TAKE 1 CAPSULE BY MOUTH EVERY 6 HOURS NEEDED FOR CRAMPS nifedipine ER 30 mg tablet,extended release 24 hr Completed ? 02/24/2021 TAKE 1 TABLET BY MOUTH EVERY DAY nitrofurantoin monohydrate/macrocrystals 100 mg capsule Complete d ? 01/02/2021 TAKE 1 CAPSULE BY MOUTH EVERY 12 HOURS WITH FOOD ondansetron 4 mg disintegrating tablet Active ? Not available DISSOLVE 1 TABLET ON THE TONGUE EVERY 6 HOURS NEED ED FOR NAUSEA OR VOMITING Active ? Not available Prometrium 200 mg capsule Completed 01/01/20202019 take 1 capsule by oral route every day for 12 days in the evening on day
--- OUTSIDE RECORDS SUMMARY | 2022-03-24 22:27 | XMS_ITS | Encounter Summary ---
:1990 Author Care Team Providers Name Role Phone Emanuel Oswald DO Primary Care Provider [phone] Reason for Visit None recorded. Assessment and Plan 1. History of pre-eclampsia ? US, obstetric, biophysical profile + non-stress test Discussion Note: None recorded.Patient educational handouts: No information available. Plan of Care Reminders Provider Appointments Induction 03/28/2022 Lindsay Herrera CNM 5:00AM Lab None recorded. ? ? Referral None recorded. ? ? Procedures None recorded. ? ? Surgeries None recorded. ? ? Imaging US, Obstetric, Biophysical 03/14/2022 [place] Profile + Non-stress Test Medications [...] by ? 09/27/2019 Breast Biopsy Information not gurdeep shcneider Notes: left
--- OUTSIDE RECORDS SUMMARY | 2022-03-24 22:27 | XMS_ITS | Encounter Summary ---
:1990 Author Care Team Providers Name Role Phone Emanuel Oswald DO Primary Care Provider [phone] Reason for Visit None recorded. Assessment and Plan 1. History of pre-eclampsia ? non-stress test Discussion Note: None recorded.Patient educational handouts: No information available. Plan of Care Reminders Provider Appointments Induction 03/28/2022 5:00AM Lindsay juarez CNM Lab None recorded. ? ? Referral None recorded. ? ? Procedures None recorded. ? ? Surgeries None recorded. ? ? Imaging Non-stress Test 03/21/2022 [place] Medications Name Start Date ? ? meclizine [...]
--- OUTSIDE RECORDS SUMMARY | 2022-03-24 22:28 | XMS_ITS | Encounter Summary ---
:1990 Author Care Team Providers Name Role Phone Emanuel Oswald DO Primary Care Provider [phone] Reason for Visit OB visit OB [id number] EDC 04/04/2022 LMP 06/28/2021 Assessment and Plan Assessment Note Patient is _30_weeks . Discusse d plan. 1. Routine care Discussion Note: None [...] BMI Blood Pressure 5 ft 3.75 in 155 lbs 26.8 kg/m2 130/79 mm[Hg] Results Lab Results None recorded. Allergies Code Code System Name Reaction Severity Onset 7052 RxNorm Morphine ? ? ? Problems Name Status Onset Date Source ? Active 09/20/2021 ? Procedures Date Name Performed by ?
--- OUTSIDE RECORDS SUMMARY | 2022-03-24 22:28 | XMS_ITS | Encounter Summary ---
:1990 Author Care Team Providers Name Role Phone Emanuel Oswald DO Primary Care Provider [phone] Reason for Visit OB visit Assessment and Plan Assessment Note Patient is ___weeks . Discussed plan. 1. Routine care Discussion Note: None [...] BMI Blood Pressure 5 ft 3.75 in 156 lbs 27 kg/m2 117/75 mm[Hg] Results Lab Results None recorded. Allergies Code Code System Name Reaction Severity Onset 7052 RxNorm Morphine ? ? ? Problems Name Status Onset Date Source ? Active 09/20/2021 ? Procedures Date Name Performed by ? 09/27/2019 Breast Biopsy Information not gurdeep schneider
--- OUTSIDE RECORDS SUMMARY | 2022-03-24 22:28 | XMS_ITS | Encounter Summary ---
:1990 Author Care Team Providers Name Role Phone Emanuel Oswald DO Primary Care Provider [phone] Reason for Visit None recorded. Assessment and Plan 1. Tachycardia ? non-stress test Discussion Note: None recorded.Patient educational handouts: No information available. Plan of Care Reminders Provider Appointments Induction 03/28/2022 5:00AM Lindsay juarez CNM Lab None recorded. ? ? Referral None recorded. ? ? Procedures None recorded. ? ? Surgeries None recorded. ? ? Imaging Non-stress Test 02/19/2022 [place] Medications Name Start Date ? ? meclizine [...] ? 09/27/2019 Breast Biopsy Information not avai lable Notes: left 10/28/2018 Colonoscopy Information not avai lable 10/28/2015 Insertion of Stent into Ureter Informati on not available
--- OUTSIDE RECORDS SUMMARY | 2022-03-24 22:28 | XMS_ITS | Encounter Summary ---
:1990 Author Care Team Providers Name Role Phone Emanuel Oswald DO Primary Care Provider [phone] Reason for Visit None recorded. Assessment and Plan 1. History of pre-eclampsia ? non-stress test Discussion Note: None recorded.Patient educational handouts: No information available. Plan of Care Reminders Provider Appointments Induction 03/28/2022 5:00AM Lindsay juarez CNM Lab None recorded. ? ? Referral None recorded. ? ? Procedures None recorded. ? ? Surgeries None recorded. ? ? Imaging Non-stress Test 03/07/2022 [place] Medications Name Start Date ? ? meclizine [...]
--- OUTSIDE RECORDS SUMMARY | 2022-03-24 22:28 | XMS_ITS | Encounter Summary ---
:1990 Author Care Team Providers Name Role Phone Emanuel Oswald DO Primary Care Provider [phone] Reason for Visit None recorded. Assessment and Plan 1. Tachycardia ? non-stress test Discussion Note: None recorded.Patient educational handouts: No information available. Plan of Care Reminders Provider Appointments Induction 03/28/2022 5:00AM Lindsay juarez CNM Lab None recorded. ? ? Referral None recorded. ? ? Procedures None recorded. ? ? Surgeries None recorded. ? ? Imaging Non-stress Test 02/22/2022 [place] Medications Name Start Date ? ? meclizine [...]
--- OUTSIDE RECORDS SUMMARY | 2022-03-24 22:28 | XMS_ITS | Encounter Summary ---
:1990 Author Care Team Providers Name Role Phone Emanuel Oswald DO Primary Care Provider [phone] Reason for Visit OB visit OB [id number] EDC 04/04/2022 LMP 06/28/2021 Assessment and Plan Assessment Note Patient is _35__weeks . Discuss ed plan. 1. Routine care 2. Herpes simplex ? Valtrex 500 mg tablet Discussion Note: None recorded.Patient educational handouts: No [...] BMI Blood Pressure 5 ft 3.75 in 158 lbs 27.3 kg/m2 108/62 mm[Hg] Results Lab Results None recorded. Allergies Code Code System Name Reaction Severity Onset 7052 RxNorm Morphine ? ? ? Problems Name Status Onset Date Source ? Active 09/20/2021 ?
--- OUTSIDE RECORDS SUMMARY | 2022-03-24 22:28 | XMS_ITS | Encounter Summary ---
:1990 Author Care Team Providers Name Role Phone Emanuel Oswald DO Primary Care Provider [phone] Reason for Visit None recorded. Assessment and Plan 1. History of pre-eclampsia ? non-stress test Discussion Note: None recorded.Patient educational handouts: No information available. Plan of Care Reminders Provider Appointments Induction 03/28/2022 5:00AM Lindsay juarez CNM Lab None recorded. ? ? Referral None recorded. ? ? Procedures None recorded. ? ? Surgeries None recorded. ? ? Imaging Non-stress Test 02/28/2022 [place] Medications Name Start Date ? ? meclizine [...]
--- OUTSIDE RECORDS SUMMARY | 2022-03-24 22:28 | XMS_ITS | Encounter Summary ---
:1990 Author Care Team Providers Name Role Phone Emanuel Oswald DO Primary Care Provider [phone] Reason for Visit None recorded. Assessment and Plan 1. Uterine size for dates discrepancy ? US, obstetric, follow-up Discussion Note: None recorded.Patient educational handouts: No information available. Plan of Care Reminders Provider Appointments Induction 03/28/2022 5:00AM Lindsay juarez CNM Lab None recorded. ? ? Referral None recorded. ? ? Procedures None recorded. ? ? Surgeries None recorded. ? ? Imaging US, Obstetric, Follow-up 02/28/2022 [place] Medications Name Start Date ? ? meclizine [...]
--- OUTSIDE RECORDS SUMMARY | 2022-03-24 22:28 | XMS_ITS | Encounter Summary ---
:1990 Author Care Team Providers Name Role Phone Emanuel Oswald DO Primary Care Provider [phone] Reason for Visit None recorded. Assessment and Plan 1. High risk care ? US, obstetric, biophysical profile + non-stress test Discussion Note: None recorded.Patient educational handouts: No information available. Plan of Care Reminders Provider Appointments Induction 03/28/2022 Lindsay Herrera CNM 5:00AM Lab None recorded. ? ? Referral None recorded. ? ? Procedures None recorded. ? ? Surgeries None recorded. ? ? Imaging US, Obstetric, Biophysical 03/07/2022 [place] Profile + Non-stress Test Medications [...] 09/27/2019 Breast Biopsy Information not gurdeep schneider Notes: left
--- OUTSIDE RECORDS SUMMARY | 2022-03-24 22:28 | XMS_ITS | Encounter Summary ---
:1990 Author Care Team Providers Name Role Phone Emanuel Oswald DO Primary Care Provider [phone] Reason for Visit OB visit OB [id number] EDC 04/04/2022 lmp 06/28/2021 Assessment and Plan Assessment Note Patient is 36___weeks . Discuss ed plan. 1. Routine care [...] ft 3.75 in 159 lbs 27.5 kg/m2 110/72 mm[Hg] Results Lab Results None recorded. Allergies Code Code System Name Reaction Severity Onset 7052 RxNorm Morphine ? ? ? Problems Name Status Onset Date Source ? Active 09/20/2021 ? Procedures Date Name Performed by ? 09/27/20
--- OUTSIDE RECORDS SUMMARY | 2022-03-24 22:28 | XMS_ITS | Encounter Summary ---
:1990 Author Care Team Providers Name Role Phone Emanuel Oswald DO Primary Care Provider [phone] Reason for Visit OB visit OB [id number] EDC 04/04/2022 LMP 06/28/2021 Assessment and Plan Assessment Note Patient is __28_weeks . Discuss ed plan. 1. Routine care [...] BMI Blood Pressure 5 ft 3.75 in 153 lbs 26.5 kg/m2 119/76 mm[Hg] Results Lab Results None recorded. Allergies Code Code System Name Reaction Severity Onset 7052 RxNorm Morphine ? ? ? Problems Name Status Onset Date Source ? Active 09/20/2021 ? Procedures Date Name Performed by ?
--- OUTSIDE RECORDS SUMMARY | 2022-03-24 22:28 | XMS_ITS | Encounter Summary ---
:1990 Author Care Team Providers Name Role Phone Emanuel Oswald DO Primary Care Provider [phone] Reason for Visit OB visit OB [id number] EDC 04/04/2022 LMP 06/28/2021 Assessment and Plan Assessment Note Patient is _32__weeks . Discuss ed plan. 1. Routine care [...] ft 3.75 in 156 lbs 27 kg/m2 126/74 mm[Hg] Results Lab Results None recorded. Allergies Code Code System Name Reaction Severity Onset 7052 RxNorm Morphine ? ? ? Problems Name Status Onset Date Source ? Active 09/20/2021 ? Procedures Date Name Performed by ?
--- NOTE | 2022-03-24 22:29 | LDADM ---
This patient, Loretta Zaragoza, was admitted to Labor/Delivery/Recovery 107 on 03/24/22 at 22:07. Plans for labor, pain management and were discussed with patient. Patient/family oriented to hospital policies and general routines including ID bracelet, bed and alarms, visiting hours, pain management, procedures, bathroom and other care routines, personal items, smoking policy, room service/diet and guest tray routines, security routines, and visiting hours. Patient/Family are encouraged to report perceived risks to care and to ask questions if they do not understand what they are told or what they should do. See OBIX for further documentation.
[2022-03-24] MEDS: LACTATED RINGERS 1,000 ML 125 ML IV CONT (22:39)
[2022-03-24 22:40] LABS: Basophils Percent Auto 0.3 % (0.2-1.2); Eosinophils Absolute Auto 0.1 K/mm3 (0-0.3); Eosinophils Percent Auto 0.7 % (0-4.4); Hematocrit 35.5 % (37.0-47.0); Hemoglobin 11.6 g/dL (12.0-15.0); Immature Granulocyte Absolute 0.11 K/mm3 (0.00-0.031); Immature Granulocyte Percent A 0.9 % (0-0.5); Lymphocytes Absolute Auto 1.87 K/mm3 (0.9-3.2); Lymphocytes Percent Auto 15.6 % (18.3-44.2); Mean Corpuscular HGB Conc 32.7 g/dl (32-36); Mean Corpuscular Volume 88.8 fl (80-100); Mean Platelet Volume 10.1 fl (7.4-10.4); Monocytes Absolute Auto 1.3 K/mm3 (0.1-0.6); Monocytes Percent Auto 10.6 % (2.6-8.5); Neutrophils Absolute Auto 8.6 K/mm3 (1.3-6.7); Neutrophils Percent Auto 71.9 % (45.5-73.1); Platelet Count Result 193 k/mm3 (150-375)
--- NOTE | 2022-03-24 22:56 | WPDANESEPP ---
Anes - Eval Pre Procedure Date/Time: 03/24/22 22:56 Pre Op Diagnosis: IOL Patient Data Age: 31 Gender: F Height: 1.63 m Weight: 73 kg Last Vital Signs Pulse 91 03/24/22 22:30 BP 134/88 03/24/22 22:30 Allergies Allergy/AdvReac Type Severity Reaction Status Date / Time morphine Allergy Intermediate Rash Verified 03/24/22 22:40 Home Medications Medication Instructions Recorded Confirmed Type prenat.vits,negro,kty-rvmb-hghqp 1 tablet PO DAILY 01/05/21 03/24/22 History valacyclovir 500 mg tablet 500 mg PO Q12H 01/30/21 03/24/22 History (Valtrex) acetaminophen 325 mg tablet (Mapap 650 mg PO Q4H PRN Mild Pain (1-3) 01/07/22 03/24/22 Rx (acetaminophen)) Or Fever fluticasone propionate 50 1 spray intranasal Q12HR 01/07/22 03/24/22 Rx mcg/actuation nasal spray,suspension Laboratory Tests 03/24/22 03/24/22 03/24/22 22:35 22:35 22:35 WBC 12.0 K/mm3 H K/mm3 (4.5-10.0) RBC 4.00 M/mm3 L M/mm3 (4.2-5.4) Hgb 11.6 g/dL L g/dL (12.0-15.0) Hct 35.5 % L % (37.0-47.0) MCV 88.8 fl fl (80-100) MCH 29.0 pg pg (26-34) MCHC 32.7 g/dl g/dl (32-36) RDW 16.0 % H % (11.5-14.5) Plt Count 193 k/mm3 k/mm3 (150-375) MPV 10.1 fl fl (7.4-10.4) Immature Gran % (Auto) 0.9 % H % (0-0.5) Neut % (Auto) 71.9 % % (45.5-73.1) Lymph % (Auto) 15.6 % L % (18.3-44.2) Richardson % (Auto) 10.6 % H % (2.6-8.5) Eos % (Auto) 0.7 % % (0-4.4) Baso % (Auto) 0.3 % % (0.2-1.2) Lymph # (Auto) 1.87 K/mm3 K/mm3 (0.9-3.2) Richardson # (Auto) 1.3 K/mm3 H K/mm3 (0.1-0.6) Eos # (Auto) 0.1 K/mm3 K/mm3 (0-0.3) Baso # (Auto) 0.0 K/mm3 K/mm3 (0.0-0.1) Abs Immat Gran (auto) 0.11 K/mm3 H K/mm3 (0.00-0.031) Absolute Neuts (auto) 8.6 K/mm3 H K/mm3 (1.3-6.7) Absolute Nucleated RBC 0.0 K/mm3 K/mm3 (0.0-0.012) Nucleated RBC % 0.0 % % (0.0-0.2) Sodium Pending Potassium Pending Chloride Pending Carbon Dioxide Pending Anion Gap Pending BUN Pending Creatinine Pending Estim Creat Clear Calc Pending Estimated GFR Pending Glucose Pending Calcium Pending Total Bilirubin Pending AST Pending ALT Pending Alkaline Phosphatase Pending Total Protein Pending Albumin Pending RPR Pending Patient hx anesthesia problems: none Family hx anesthesia problems: none Results Review: All pre-operative results and documents have been reviewed as part of the pre-operative evaluation. [facility] Past Medical History Medical History Healthy female adult Surgical History Surgical History No history of previous surgery Family History Family History Other Unknown family medical history Social History Social History Smoking status: Never smoker Second hand tobacco smoke exposure: No Substance use: never Gender identity (if verbalized by the patient): Female Sexual Orientation (if Verbalized by the Patient): Straight or Heterosexual Spiritual care concerns: No Exam Day of Procedure 03/24/22 22:56
[2022-03-24 23:03] LABS: Alanine Aminotransferase 9 U/L (6-35); Albumin Level 3.5 g/dL (3.5-5.1); Alkaline Phosphatase 148 U/L (38-126); Anion Gap 5 mmol/L (8-16); Aspartate Amino Transferase 20 U/L (14-36); Bilirubin,Total 0.7 mg/dL (0.2-1.3); Blood Urea Nitrogen 6 mg/dL (7-17); Calcium 9.3 mg/dL (8.4-10.2); Carbon Dioxide 20 mmol/L (22-30); Chloride 109 mmol/L (98-107); Estimated CRCL calculation 113 ml/min; Estimated Glomerular Filt Rate > 60; Glucose 86 mg/dL (65-110); Potassium 3.9 mmol/L (3.4-5.0); Sodium 134 mmol/L (137-145)
[2022-03-24] MEDS: LACTATED RINGERS 1,000 ML 999 ML IV CONT (23:19)
[2022-03-25] VITALS (44 sets, daily range): BP systolic 91–121; BP diastolic 38–75; PULSE 66–140; RESP 18–20; TEMP 36.2–36.7; O2SAT 95–100
[2022-03-25] MEDS: ONDANSETRON INJ 4 MG/2 ML VIAL IV PUSH (01:27)
[2022-03-25] MEDS: OXYTOCIN 30 UNITS/NS 500 ML 30 UNITS/500 ML BAG 999 UNITS IV CONT (01:49)
--- NOTE | 2022-03-25 02:03 | PM.OBPRVD ---
OB - Delivery Note Procedure Delivery date: 03/25/22 Procedure: Vaginal delivery Induction method: None Route of delivery: Episiotomy description: None Laceration Description: Perineal - 1st Degree Delivery repair: vicryl Specimen: No Quantitative Blood Loss (ml): 245 Anesthesia type: Epidural Disposition: Floor Baby Date of : 03/25/22 Time of : 01:41 Weeks of gestation at delivery: 38 Infant gender: Female Weight (pounds): 8 Weight (ounces): 3 presentation: vertex position: Right Occiput Anterior Placenta delivery description: Spontaneous Cord Vessel Description: 3 Vessels score one minute: 8 score five minutes: 9 Narrative: Mom and baby skin to skin in stable condition
--- NOTE | 2022-03-25 05:00 | OBPPTRN ---
Patient transferred to post room #292 in wheelchair. Support person present. Oriented to unit, room, information board, plan of care, rooming in, admission packet and security measures. Patient verbalizes understanding.
[2022-03-25] MEDS: valACYclovir HCL 500 MG TABLET PO (08:30)
[2022-03-25] MEDS: MULTIVIT/MIN/PREN/FOL AC/IRON TABLET 1 TAB PO (08:30)
[2022-03-25] MEDS: IBUPROFEN 600 MG TABLET PO ×2 (08:33→14:45)
[2022-03-25] MEDS: WITCH HAZEL 40 PADS 1 PAD TOPICAL (08:34)
[2022-03-25] MEDS: LANOLIN (LANSINOH) 7.5 GM CREAM 1 APPLIC TOPICAL (13:36)
--- NOTE | 2022-03-25 19:39 | OBPPTRN ---
03/25/2022 at 0510. I discussed with mother her being positive for HSV and the importance of things mother can do to prevent mother from passing HSV to the baby. I reviewed the use of excellent handwashing, taking Valtrex as prescribed by the doctor, being on the lookout for an outbreak, and to contact her Dr. at once and get a new prescription. I also discussed symptoms that may manifest itself in baby such as neurological symptoms such as and not only including rhythmic motions namely seizures in baby, lethargy, temperature increase or decrease, or baby just not acting right . I stressed to mother the importance of calling baby's Dr. at once if she sees any of these symptoms or has any questions or concerns and remind the provider of mother's HSV status. Mother states understanding.
[2022-03-26] MEDS: IBUPROFEN 600 MG TABLET PO ×2 (00:19→08:12)
[2022-03-26] MEDS: valACYclovir HCL 500 MG TABLET PO (00:21)
[2022-03-26 06:00] LABS: Hematocrit 31.7 % (37.0-47.0); Hemoglobin 10.1 g/dL (12.0-15.0)
[2022-03-26 06:27] LABS: Rapid Plasma Reagin Non-Reactive (NonReactive)
[2022-03-26] MEDS: MULTIVIT/MIN/PREN/FOL AC/IRON TABLET 1 TAB PO (08:12)
--- NOTE | 2022-03-26 09:00 | PC.NURSE ---
Patient instructed to view the discharge video Mother & Baby Care, The First Two Weeks . Patient was given the opportunity and encouraged to ask questions. Patient verbalized understanding of information shared and has been given the mother/baby guide for home reference.
--- NOTE | 2022-03-26 09:11 | PM.OBPNVD ---
OB - PN: Subj Subjective Date/time seen: 03/26/22 09:11 Doing well post vaginal delivery. No complaints. OB - PN: Obj Data Labs CBC & Chem 7: 03/26/22 05:53 03/24/22 22:35 Labs: Laboratory Results - last 24 hr 03/24/22 03/26/22 22:35 05:53 Hgb 10.1 L Hct 31.7 L RPR Non-reactive OB - PN A/P Plan day: 1 Plan: routine care and discharge home Time Spent With Patient Time: Total time spent is greater than 50% in coordination of care (as documented) at patient's floor/unit and/or counseling patient: Review of Systems Review of Systems: All systems reviewed & are unremarkable except as noted in HPI and below Exam Const: General: cooperative, healthy appearing and comfortable
--- NOTE | 2022-03-26 09:14 | P.DS_ITS ---
DS: Admitting Diagnosis Discharge Date 03/26/22 Admitting Diagnosis Labor OB - DS: Summary OB Procedures : None OB Procedures Intrapartum: Spontaneous Vag Delivery OB Procedures: : None Time Spent with Patient Time attestation: Total time spent providing and/or coordinating discharge services: DS: Data Data Completed and Pending Labs on day of discharge: Labs from last 24 hours 03/26/22 03/24/22 05:53 22:35 Hgb 10.1 L Hct 31.7 L RPR Non-reactive Discharge Plan Discharge Attending physician on discharge: Karen Mack Discharging Clinician: Lindsay Herrera Patient Disposition: Home, Self-Care Activity: pelvic rest Diet: regular Patient Instructions: Antibiotic Form Stand Alone Forms: General Discharge Information Follow-up/Referrals: Lindsay Herrera CNM [Certified Nurse Drill Press Operator] - 4 Weeks Discharge Medications: Continued valacyclovir [Valtrex] 500 mg Tablet 500 mg PO Q12H prenat.vits,negro,vrv-guif-ceyeg Tablet 1 tablet PO DAILY fluticasone propionate 50 mcg/actuation [place],Suspension 1 spray intranasal Q12HR 0RF Discontinued acetaminophen [Mapap (acetaminophen)] 325 mg Tablet 650 mg PO Q4H PRN (Reason: Mild Pain (1-3) Or Fever) 0RF Date of admission: 03/24/22 22:07 Primary Care Provider: Darek,Emanuel Admitting Provider: Karen Mack Attending physician on admission: Karen Mack Condition: Stable
--- NOTE | 2022-03-26 09:15 | P.DS_ITS ---
DS: Admitting Diagnosis Discharge Date 03/26/22 Admitting Diagnosis Labor OB - DS: Summary OB Procedures : None OB Procedures Intrapartum: Spontaneous Vag Delivery OB Procedures: : None Time Spent with Patient Time attestation: Total time spent providing and/or coordinating discharge services: DS: Data Data Completed and Pending Labs on day of discharge: Labs from last 24 hours 03/26/22 03/24/22 05:53 22:35 Hgb 10.1 L Hct 31.7 L RPR Non-reactive Discharge Plan Discharge Attending physician on discharge: Karen Mack Discharging Clinician: Lindsay Herrera Patient Disposition: Home, Self-Care Activity: pelvic rest Diet: regular Patient Instructions: Antibiotic Form Stand Alone Forms: General Discharge Information Follow-up/Referrals: Lindsay Herrera CNM [Certified Nurse Steel Division Supervisor] - 4 Weeks Discharge Medications: Continued valacyclovir [Valtrex] 500 mg Tablet 500 mg PO Q12H prenat.vits,negro,moq-yezd-pafsm Tablet 1 tablet PO DAILY fluticasone propionate 50 mcg/actuation [place],Suspension 1 spray intranasal Q12HR 0RF Discontinued acetaminophen [Mapap (acetaminophen)] 325 mg Tablet 650 mg PO Q4H PRN (Reason: Mild Pain (1-3) Or Fever) 0RF Date of admission: 03/24/22 22:07 Primary Care Provider: Darek,Emanuel Admitting Provider: Karen Mack Attending physician on admission: Karen Mack Condition: Stable
--- NOTE | 2022-03-26 09:21 | WPDANESPN ---
Anes - Prog Note Post-Op Date/Time: 03/26/22 09:21 Cardiovascular status: normal Respiratory status: normal Airway patency: baseline Mental status: baseline Post-Op hydration status: normal Vital Signs: Last Vital Signs Temp 36.3 C L 03/25/22 23:45 Pulse 66 03/25/22 23:45 Resp 18 03/25/22 23:45 BP 100/50 L 03/25/22 23:45 Pulse Ox 98 03/25/22 23:45 O2 Del Method Room Air 03/25/22 04:30 Pain Score (VAS): 0 I/O: Intake & Output 03/25/22 03/26/22 03/26/22 23:59 07:59 15:59 Intake Total 240 Balance 240 Laboratory Tests 03/26/22 05:53 03/24/22 22:35 03/24/22 03/26/22 22:35 05:53 Hgb 10.1 L Hct 31.7 L RPR Non-reactive Patient Feedback: Patient satisfied with anesthetic care.
[2022-03-26 09:40] VITALS: BP 109/72; PULSE 89; RESP 18; TEMP 36
--- NOTE | 2022-03-26 11:30 | PC.NURSE ---
[id number] Introductions were made, then consulted with patient to assess needs related to . Mother led the conversation with her experience feeding her so far. Mother works well with her and states is going much better than after her last deliver 13 months ago. Father of infant is feeding colostrum with a bottle nipple. Encouraged understanding of the benefits of skin to skin (unwrapping and placing vertically on her chest), responsive feeding and how to watch for early feeding signs, frequency of feeding on demand about every 8-12 times in 24 hours (every 2-3 hours), milk production, duration of feeding, signs of adequate intake/output and how to record on the feeding sheet. Reviewed positioning and ear, shoulder, hip alignment, supporting the breast, asymmetrical latch (off-center), and leading with the chin with a big open side gape. Mother had breastfed with a nipple shield. Nipple shield provided prior to shift due to inverted nipples. Reviewed good handwashing, cleaning the nipple shield and application. Discussed with mom the nipple shield precautions, possible complications associated with the risks and benefits. Reviewed practicing with a nipple shield, then without and how to protect the milk supply and production. Mom and baby guide referred to as a resource for using a nipple shield, out-patient services, community resources and when to call a provider. Mom voiced understanding of the importance of hand expression, nipple stimulation and initiating a pumping schedule if infant continues to nurse with the shield. Nipple care reviewed with optimal latch and good positioning. Reminding mother of comfort measures of healing with a warm and wet washcloth to rinse breast, then leave open to air-dry as needed. Reviewed good handwashing when or touching the breast/nipples to prevent infection. Breast pump provided prior to shift due to use of nipple shield and inverted nipples. Instructions given on cleaning, care, usage, there should be no pain, pumping schedule for milk production, collection, and storage of human milk. Parents are encouraged to record pumping schedule on the feeding sheet. Patient was assessed for correct placement, flange size, to pump for comfort and nipple stretching/stimulation for adequate milk production. Mother is feeding appropriately for growth of infant and understands stimulating infant to eat if needed. has had appropriate feedings in the last 24 hours meets the outcomes for weight, output (last BM was 1810 5/29) and jaundice at this time. Mother states she is confident to continue attempting to improve latch with tools provided to effectively breastfeed and to attempt to latch without the nipple shield. Mother will be pumping to stimulate milk production and to stimulate nipples, then attempt to latch . Parents are bottle feeding breastmilk and will supplement with formula if needed for infant at home. Voiced knowing when to call for assistance and denies any additional assistance or education at this time. Reinforced understanding of milk production, transition of milk, signs of adequate intake, prevention/relief of engorgement, responsive after visualizing feeding cues, the different methods of stimulating infant to breastfeed 2-3 hours after the start of the last feeding, community resources, medication information reviewed per [employer] and when to call a provider using the resource of the mom and baby guide/[facility] website. Mother voiced understanding of the education shared. Reported to the primary RN.
[2022-03-27 07:51] VITALS: BP 107/68; PULSE 96; RESP 20; TEMP 36.6; O2SAT 99
== END 2022-03-26 11:55 | disposition home or self-care (01) | DRG 807 ==
LOC: ANHLDR 22:51 → ANHOB2 03-25 04:52
PROVIDERS: Advanced Practice Midwife; Admitting Provider Obstetrics & Gynecology; PCP Student in an Organized Health Care Education/Training Program; Visit Provider Obstetrics & Gynecology
DX: O70.0 First degree perineal laceration during delivery (principal); Z37.0 Single live birth; Z3A.38 38 weeks gestation of pregnancy
CPT/HCPCS: 36415; 80053; 84112; 85014; 85018; 85025; 86592; 86850; 86900; 86901; A9270; J2405; J2590; J2795; J7120

== ENCOUNTER 2024-03-24 00:29 | Day surgery (SDC) | payer BC, SELFPAY ==
[2024-03-13 11:32] VITALS: BMI 25.8
--- NOTE | 2024-03-13 11:36 | PC.NURSE ---
Report to the Outpatient Waiting Room, entrance under the green pavilion located off [facility], at time _0600_ on date _[id number]_. Planned Procedure Time: _0730_. Time changes happen often and if your time is changed the preop area will call you the afternoon before. - You and your visitor will be asked to self-screen and do not enter if you have any COVID symptoms. - A mask is optional within the hospital at this time. Patients may have clear liquids (water, carbonated beverages, clear teas, apple juice) until 3 hours prior to surgery with a maximum of 20 ounces. - No food from midnight until time of surgery Take the following medications with a SIP of water the morning of surgery: None DO NOT STOP ANY OF YOUR OTHER PRESCRIPTION MEDICATIONS PRIOR TO SURGERY ?EXCEPT THE FOLLOWING Medications to discontinue per physician ____None Date to take last dose Please no make-up, nail divehi, hairspray, perfume, deodorant, or body powder the day of surgery. No jewelry (including any body piercings) or valuables the day of surgery, leave them at home. Please take a shower or bath the night before, or the morning of, surgery with an antibacterial soap. Wear comfortable, loose fitting clothing. - Jewelry must be removed prior to entering the operating room. Rings and piercings that are not removed may be cut off. - The hospital will not accept responsibility for valuables. - Please leave all valuables, including medications, at home the day of surgery. If you are going home after surgery, a licensed delivery truck driver must drive you home. - NO public transportation without another adult if you receive anesthesia. - We recommend that an adult stay with you for 24 hours following discharge. - We also recommend that you do not drive, make important decision, drink alcoholic beverages, or take any drugs that were not prescribed by your health care provider for at least 24 hours after your discharge time. Follow any additional instructions given to you from your surgeon. If you or anyone in your household have experienced Covid symptoms in the past week, please notify your surgeon or the nurse liaison at the phone number below for possible testing. Telephone instructions given to __Sydney___and asked if any additional questions and then verbalized understanding. Patient advised to call surgeon office or pre surgery nurse liaison [phone] if any additional questions.
[2024-03-24] VITALS (10 sets, daily range): BP systolic 93–113; BP diastolic 55–79; PULSE 64–91; RESP 11–18; TEMP 36.2–36.4; O2SAT 95–100
[2024-03-24] MEDS: LACTATED RINGERS 1,000 ML 30 ML IV CONT ×2 (06:30→09:03)
--- NOTE | 2024-03-24 06:49 | WPDANESEPPF ---
Anes - Initial Pre Proc Eval Procedure: Operation Date: 03/24/24 07:30 Proposed Procedures p Diagnostic Laparoscopy - Zhen Mack MD Date/Time: 03/24/24 06:49 Surgeon: Zhen Mack MD Pre Op Diagnosis: pelvic mass Patient Data Age: 33 Gender: F Height: 1.63 m Weight: 68.2 kg Allergies Allergy/AdvReac Type Severity Reaction Status Date / Time morphine Allergy Intermediate Rash Verified 03/24/24 06:45 Home Medications Medication Instructions Recorded Confirmed Type No Home Medications 03/13/24 03/24/24 History Patient hx anesthesia problems: post op nausea/vomiting Family hx anesthesia problems: none Results Review: All pre-operative results and documents have been reviewed as part of the pre-operative evaluation. [facility] Past Medical History Medical History (Updated 03/20/24 @ 14:00 by Zion Oswald DO) Anemia Colitis GERD (gastroesophageal reflux disease) IBS (irritable bowel syndrome) Surgical History Surgical History No history of previous surgery Family History Family History Other Unknown family medical history Social History Social History (Updated 03/24/24 @ 07:24 by Zion Oswald DO) Smoking status: Never smoker Second hand tobacco smoke exposure: No Alcohol intake: current Drinks per week: 10 Alcohol use details: 3 drinks/day Substance use: never Living arrangements: with family Gender identity (if verbalized by the patient): Female Sexual Orientation (if Verbalized by the Patient): Straight or Heterosexual Spiritual care concerns: No Anes - Eval Final PreProcedure Day of Procedure 03/24/24 06:49 Patient weight: overweight Heart: regular rate and rhythm Lungs: clear to auscultation Airway: Mallampati scale class II Neurological: alert and oriented Last oral intake: >/= 8 hours ASA classification: III Emergent: no Anesthetic plan: proceed Anesthesia type and monitoring: general ETT and standard monitoring Results Review: All pre-operative results and documents have been reviewed as part of the pre-operative evaluation. Informed Consent: The patient's anesthetic plan and its attendant risks and benefits were discussed with the patient/family/POA. Questions were solicited and answers provided to the satisfaction of the patient/family/POA.
[2024-03-24] MEDS: ACETAMINOPHEN 500 MG TABLET 1000 MG PO (06:50)
[2024-03-24] MEDS: KETOROLAC 15 MG/ML VIAL (*BKC) IV PUSH (06:50)
[2024-03-24] MEDS: SCOPOLAMINE 1 MG PATCH 1 PATCH TRANSDERM (06:53)
--- NOTE | 2024-03-24 07:32 | PM.IMHP ---
H&P: HPI History of Present Illness Date/Time: 03/24/24 07:32 Chief Complaint: pelvic mass Narrative: this patient is a 33-year-old female with a mass in the vesicle vaginal space. We have agreed to perform resection of mass. will attempt to resect transvaginally and may also use diagnostic laparoscopy. The patient understands the details of the procedure. The procedure has been explained in detail. She understands the risks. She understands that injuries may occur that result in hospitalization, more surgery, and severe illness. She understands risk of hemorrhage and infection. She denies any chest pain or shortness of breath. She denies any nausea, vomiting, fever, chills. Review of Systems Review of Systems: All systems reviewed & are unremarkable except as noted in HPI and below Constitutional: Constitutional: Denies chills, Denies fatigue, Denies fever(s) and Denies weakness Eyes: Eyes: Denies blurry vision, Denies change in vision, Denies loss of peripheral vision, Denies loss of vision, Denies other visual disturbances and Denies eye pain ENT: Denies vertigo, Denies dizziness, Denies hearing loss, Denies mouth pain, Denies nasal obstruction, Denies neck mass and Denies neck pain Cardiovascular: Cardiovascular: Denies chest pain, Denies diaphoresis, Denies syncope, Denies leg edema and Denies dyspnea Respiratory: Respiratory: Denies chest congestion, Denies cough, Denies hemoptysis, Denies dyspnea and Denies wheezing Gastrointestinal: Gastrointestinal: Denies abdominal pain, Denies constipation, Denies diarrhea, Denies nausea and Denies vomiting Genitourinary: Genitourinary: Denies hematuria, Denies change in libido, Denies nocturia, Denies genital lesions, Denies flank pain and Denies urinary urgency Musculoskeletal: Musculoskeletal: Denies abnormal gait, Denies back pain, Denies myalgias, Denies arthralgias, Denies joint swelling, Denies muscle weakness and Denies neck pain Integumentary/Breasts: Skin/Breast: Denies swelling, Denies breast pain, Denies breast mass, Denies dry skin, Denies nipple discharge, Denies unusual bruising and Denies jaundice Neurologic: Denies Neuro-related abnormal movements, Denies Abnormal speech present, Denies abnormal gait, Denies behavioral changes, Denies confusion, Denies vertigo, Denies dizziness, Denies syncope, Denies loss of vision, Denies memory loss, Denies convulsions and Denies weakness Psychiatric: Psychiatric: Denies abnormal sleep pattern, Denies behavioral changes, Denies change in libido, Denies confusion, Denies depression, Denies anhedonia and Denies memory loss Endocrine: Endocrine: Reports no additional endocrine complaints, Denies change in libido and Denies fatigue Hematologic/Lymphatic: Hematologic/Lymphatic: Reports no additional hematologic/lymphatic complaints Allergic/Immunologic: Allergic/Immunologic: Reports no additional allergic/immunologic complaints and Denies wheezing PMFSH Past Medical History Medical History (Updated 03/24/24 @ 07:32 by Zhen Mack MD) Anemia Colitis GERD (gastroesophageal reflux disease) IBS (irritable bowel syndrome) Surgical History Surgical History No history of previous surgery Family History Family History Other Unknown family medical history Social History Social History (Updated 03/24/24 @ 07:24 by Zion Oswald DO) Smoking status: Never smoker Second hand tobacco smoke exposure: No Alcohol intake: current Drinks per week: 10 Alcohol use details: 3 drinks/day Substance use: never Living arrangements: with family Gender identity (if verbalized by the patient): Female Sexual Orientation (if Verbalized by the Patient): Straight or Heterosexual Spiritual care concerns: No Meds Home Medications and Allergies Home Medications Medication Instructions Hemanth
--- NOTE | 2024-03-24 07:33 | WPDHPUPDATE1 ---
History and Physical Update Update Date/Time: 03/24/24 07:33 History and Physical has been reviewed, including an updated exam of the patient. There are NO changes in the patient's condition. Risks, benefits, and alternatives have been discussed and questions answered. Patient agrees to proceed with procedure.
[2024-03-24] MEDS: ceFAZolin 2 GM/D5W 50 ML 2 GM/50 ML BAG IVPB (08:00)
[2024-03-24] MEDS: LIDO 1%/EPINEPHRINE 1:100,000 50 ML VIAL INFILTRATE (08:18)
[2024-03-24] MEDS: ONDANSETRON INJ 4 MG/2 ML VIAL IV PUSH (09:18)
--- NOTE | 2024-03-24 09:30 | W.PM.PROC2 ---
Procedure Note - Detailed Date of Procedure 03/24/24 Pre-op Diagnosis pelvic mass Post-op Diagnosis Same Procedure Performed Transvaginal resection of pelvic mass Surgeon Zhen Mack MD Anesthesia General Indications pelvic mass Findings 1 cm to 2 cm poorly circumscribed submucous mass in the vesicle vaginal septum with palpation. Resection revealed a thickened vaginal mucosa in this area without discrete mass. Description of Procedure Patient is taken the operating room. She was prepped and draped in the dorsal lithotomy position after induction of general anesthesia. A weighted speculum was placed in the vagina. The submucous tissue with area of the distal urethra was injected with lidocaine. Linear incision was made under the urethra and the mucosa was dissected open in this area. It was about a 2 cm incision. No discrete mass was observed. Thickened vaginal mucosa was present. The redundant thickened vaginal mucosa was resected. The vaginal mucosa was closed with a 2-0 Vicryl running fashion. Vaginal pack was placed. She tolerated the procedure well. Sponge lap needle counts were correct x2. She has taken recovery in stable condition. Estimated Blood Loss 30 Packing Yes Pathology Yes Condition Stable Disposition Same day
[2024-03-24] MEDS: HYDROmorphone HCL INJ (*CRX) 1 MG/ML SYR 0.25 MG IV PUSH ×2 (09:36→09:50)
[2024-03-24] MEDS: diphenhydrAMINE HCl INJ 50 MG/ML VIAL 25 MG IV PUSH (09:44)
--- NOTE | 2024-03-24 10:13 | SUR.PHASEI ---
Patient complaining of feeling as if something was stuck in the back of her throat. Upon assessment it appears patient's uvula is red. Dr. Oswald notified. Stated this could be due to trauma from intubation during surgery. Encouraged patient to use ibuprofen for pain and cold fluids. Patient aware and in agreement of plan.
== END 2024-03-24 10:55 | disposition home or self-care (01) ==
PROVIDERS: PCP Family Medicine; Visit Provider Obstetrics & Gynecology
PROC: (CPT 49320; principal; 2024-03-24 07:30)
DX: N84.2 Polyp of vagina (principal)
CPT/HCPCS: 57135; 88304; A9270; J0690; J1100; J1170; J1200; J1885; J2250; J2405; J2704; J3010; J7030; J7120; Q9968